=== PATIENT | male | born 1985 | race Caucasian/White ===

== ENCOUNTER 2024-06-06 15:37 | Observation (INO) | payer OTHER ==
[2024-06-06] MEDS: ZIPRASIDONE 20 MG VIAL IM STA (15:50)
--- NOTE | 2024-06-06 15:50 | ED ---
General Adult HPI - General Stated complaint: ETOH Time Seen by Provider: 06/06/24 15:42 Source: patient, RN notes reviewed, old records reviewed - History of Present Illness Initial comments: 38-year-old male who presents to the emergency department from [facility] facility. According to EMS at [facility] he want to be there for alcohol withdrawal and possible drug abuse. Patient did a breathalyzer test and he is alcohol was 477 according to EMS and so they felt uncomfortable keeping them in the syndrome to the emergency department. Patient refuses to answer any questions he is very belligerent when he gets here because he does not want to stay - Related Data Home Medications Medication Instructions Recorded Confirmed Buprenorphine HCl/Naloxone HCl 2 film SL DIRECTED 06/06/24 06/06/24 [Suboxone 8 mg-2 mg Sl Film] FLUoxetine HCL [PROzac] See Taper PO DIRECTED 06/06/24 06/06/24 QUEtiapine [SEROquel] 50 - 100 mg PO HS PRN 06/06/24 06/06/24 chlordiazePOXIDE HCl [Librium] 10 mg PO DIRECTED 06/06/24 06/06/24 chlordiazePOXIDE HCl [Librium] 25 mg PO DIRECTED PRN 06/06/24 06/06/24 Allergies Allergy/AdvReac Type Severity Reaction Status Date / Time No Known Allergies Allergy Verified 06/06/24 17:20 Review of Systems ROS Statement: Those systems with pertinent positive or pertinent negative responses have been documented in the HPI. ROS Other: All systems not noted in ROS Statement are negative. General Exam - General Exam Comments Initial Comments: GENERAL: Patient is well-developed and well-nourished. Patient is nontoxic and well- hydrated and is in no acute distress. Patient appears very intoxicated and is very belligerent ENT: Neck is soft and supple. No significant lymphadenopathy is noted. Oropharynx is clear. Moist mucous membranes. Neck has full range of motion without eliciting any pain. EYES: The sclera were anicteric and conjunctiva were pink and moist. Extraocular movements were intact and pupils were equal round and reactive to light. Eyelids were unremarkable. PULMONARY: Unlabored respirations. Good breath sounds bilaterally. No audible rales rhonchi or wheezing was noted. CARDIOVASCULAR: There is a regular rate and rhythm without any murmurs gallops or rubs. ABDOMEN: Soft and nontender with normal bowel sounds. SKIN: Skin is clear with no lesions or rashes and otherwise unremarkable. NEUROLOGIC: Patient is alert and oriented x3. Cranial nerves II through XII are grossly intact. Motor and sensory are also intact. Normal speech, volume and content. Symmetrical smile. MUSCULOSKELETAL: Normal extremities with adequate strength and full range of motion. LYMPHATICS: No significant lymphadenopathy is noted PSYCHIATRIC: Unable to assess can Harshad to him being belligerent Course Vital Signs 06/06/24 15:46 Temperature 98.0 F Pulse Rate 82 Respiratory 20 Rate Blood Pressure 133/101 O2 Sat by Pulse 95 Oximetry Medical Decision Making - Medical Decision Making Was pt. sent in by a medical professional or institution (, [facility], [facility]ATHER ETCHER, urgent care, hospital, or group home...) When possible be specific @ -No Did you speak to anyone other than the patient for history (EMS, parent, family, police, friend...)? What history was obtained from this source @ -No Did you review nursing and triage notes (agree or disagree)? Why? @ -I reviewed and agree with nursing and triage notes Were old charts reviewed (outside hosp., previous admission, EMS record, old EKG, old radiological studies, urgent care reports/EKG's, group home records)? Report findings @ -No old charts were reviewed Differential Diagnosis? @ -Alcohol intoxication, drug abuse, this is not an all-inclusive list EKG interpreted by me (3pts min.). @ -As above X-rays interpreted by me (1pt min.). @ -None done CT interpreted by me (1pt min.). @ -None done U/S interpreted by me (1pt. min.). @ -None done What testing was considered but not performed or refused? (CT, X-rays, U/S, labs)? Why? @ -None What meds were considered but not given or refused? Why? @ -None Did you discuss the management of the patient with other professionals (professionals i.e. LAURA Araiza, LEATHER ETCHER, lab, RT, psych nurse, social insurance administrator, glue drier operator, teacher, intelligence officer basic, watch caser)? Give summary @ -I spoke with Dr. Keating he agreed to admit the patient I admitted the patient wrote admitting orders Was smoking cessation discussed for >3mins.? @ -No Was critical care preformed (if so, how long)? @ -No Were there social determinants of health that impacted care today? How? (Homelessness, low income, unemployed, alcoholism, drug addiction, tra nsportation, low edu. Level, literacy, decrease access to med. care, nursing home, rehab)? @ -No Was there de-escalation of care discussed even if they declined (Discuss DNR or withdrawal of care, Hospice)? DNR status @ -No What co-morbidities impacted this encounter? (DM, HTN, Smoking, COPD, CAD, Cancer, CVA, ARF, Chemo, Hep., AIDS, mental health diagnosis, sleep apnea, morbid obesity)? @ -None Was patient admitted / discharged? Hospital course, mention meds given and route, prescriptions, significant lab abnormalities, going to OR and other pertinent info. @ -Patient was given IV fluids. Patient was belligerent so he was given 20 of Geodon IM and 2 of Ativan IV. Undiagnosed new problem with uncertain prognosis? @ -No Drug Therapy requiring intensive monitoring for toxicity (Heparin, Nitro, Insu tejas, Cardizem)? @ -No Were any procedures done? @ -No Diagnosis/symptom? @ -Alcohol intoxication Acute, or Chronic, or Acute on Chronic? @ -Acute Uncomplicated (without systemic symptoms) or Complicated (systemic symptoms)? @ -Complicated Side effects of treatment? @ -No Exacerbation, Progression, or Severe Exacerbation? @ -No Poses a threat to life or bodily function? How? (Chest pain, USA, GA, pneumonia, PE, COPD, DKA, ARF, appy, cholecystitis, CVA, Diverticulitis, Homicidal, Suicidal, threat to staff... and all critical care pts) @ -Yes this can lead to withdrawal and possible seizures and - Lab Data Result diagrams: 06/06/24 15:54 06/06/24 15:54 Lab Results 06/06/24 06/06/24 06/06/24 Range/Units 15:54 15:54 15:54 WBC 5.5 (3.8-10.6) k/uL RBC 4.96 (4.30-5.90) m/uL Hgb 14.9 (13.0-17.5) gm/dL Hct 45.7 (39.0-53.0) % MCV 92.2 (80.0-100.0) fL MCH 30.1 (25.0-35.0) pg MCHC 32.6 (31.0-37.0) g/dL RDW 13.3 (11.5-15.5) % Plt Count 157 (150-450) k/uL MPV 6.4 Neutrophils % 49 % Lymphocytes % 41 % Monocytes % 4 % Eosinophils % 2 % Basophils % 1 % Neutrophils # 2.7 (1.3-7.7) k/uL Lymphocytes # 2.3 (1.0-4.8) k/uL Monocytes # 0.2 (0-1.0) k/uL Eosinophils # 0.1 (0-0.7) k/uL Basophils # 0.0 (0-0.2) k/uL PT (10.0-12.5) sec INR (<1.2) APTT (22.0-30.0) sec Sodium 147 H (137-145) mmol/L Potassium 4.6 (3.5-5.1) mmol/L Chloride 109 H (98-107) mmol/L Carbon Dioxide 28 (22-30) mmol/L Anion Gap 10 mmol/L BUN 13 (9-20) mg/dL Creatinine 0.74 (0.66-1.25) mg/dL Est GFR (CKD-EPI)AfAm >90 (>60 ml/min/1.73 sqM) Est GFR (CKD-EPI)NonAf >90 (>60 ml/min/1.73 sqM) Glucose 110 H (74-99) mg/dL Plasma Lactic Acid Mack 3.8 H* (0.7-2.0) mmol/L Calcium 9.1 (8.4-10.2) mg/dL Magnesium 1.8 (1.6-2.3) mg/dL Total Bilirubin 0.8 (0.2-1.3) mg/dL AST 68 H (17-59) U/L ALT 22 (4-49) U/L Alkaline Phosphatase 72 (38-126) U/L Total Protein 8.4 H (6.3-8.2) g/dL Albumin 5.2 H (3.5-5.0) g/dL Lipase 144 (23-300) U/L Serum Alcohol 429 H* mg/dL 10/15/24 Range/Units 15:54 WBC (3.8-10.6) k/uL RBC (4.30-5.90) m/uL Hgb (13.0-17.5) gm/dL Hct (39.0-53.0) % MCV (80.0-100.0) fL MCH (25.0-35.0) pg MCHC (31.0-37.0) g/dL RDW (11.5-15.5) % Plt Count (150-450) k/uL MPV Neutrophils % % Lymphocytes % % Monocytes % % Eosinophils % % Basophils % % Neutrophils # (1.3-7.7) k/uL Lymphocytes # (1.0-4.8) k/uL Monocytes # (0-1.0) k/uL Eosinophils # (0-0.7) k/uL Basophils # (0-0.2) k/uL PT 11.5 (10.0-12.5) sec INR 1.1 (<1.2) APTT 23.4 (22.0-30.0) sec Sodium (137-145) mmol/L Potassium (3.5-5.1) mmol/L Chloride (98-107) mmol/L Carbon Dioxide (22-30) mmol/L Anion Gap mmol/L BUN (9-20) mg/dL Creatinine (0.66-1.25) mg/dL Est GFR (CKD-EPI)AfAm (>60 ml/min/1.73 sqM) Est GFR (CKD-EPI)NonAf (>60 ml/min/1.73 sqM) Glucose (74-99) mg/dL Plasma Lactic Acid Mack (0.7-2.0) mmol/L Calcium (8.4-10.2) mg/dL Magnesium (1.6-2.3) mg/dL Total Bilirubin (0.2-1.3) mg/dL AST (17-59) U/L ALT (4-49) U/L Alkaline Phosphatase (38-126) U/L Total Protein (6.3-8.2) g/dL Albumin (3.5-5.0) g/dL Lipase (23-300) U/L Serum Alcohol mg/dL Disposition Clinical Impression: Alcoholic intoxication Disposition: ADMITTED IP TO THIS HOSP Referrals: None,Stated [Primary Care Provider] - 1-2 days Time of Disposition: 17:55
[2024-06-06] MEDS: LORazepam 2 MG/ML INJ IV STA (15:52)
[2024-06-06 16:04] LABS: Basophils % (A) 1 %; Eosinophils # (A) 0.1 k/uL (0-0.7); Eosinophils % (A) 2 %; HCT 45.7 % (39.0-53.0); HGB 14.9 gm/dL (13.0-17.5); Lymphocytes # (A) 2.3 k/uL (1.0-4.8); Lymphocytes % (A) 41 %; MCH 30.1 pg (25.0-35.0); MCHC 32.6 g/dL (31.0-37.0); MCV 92.2 fL (80.0-100.0); Mean Platelet Volume 6.4; Monocytes # (A) 0.2 k/uL (0-1.0); Monocytes % (A) 4 %; Neutrophils # (A) 2.7 k/uL (1.3-7.7); Neutrophils % (A) 49 %; Platelet Count 157 k/uL (150-450); RBC 4.96 m/uL (4.30-5.90); RDW 13.3 % (11.5-15.5); WBC 5.5 k/uL (3.8-10.6)
[2024-06-06 16:14] LABS: ALT 22 U/L (4-49); AST 68 U/L (17-59); African American GFR (CKD) >90 (>60 ml/min/1.73 sqM); Albumin 5.2 g/dL (3.5-5.0); Alkaline Phosphatase 72 U/L (38-126); Anion Gap 10 mmol/L; Blood Urea Nitrogen 13 mg/dL (9-20); Calcium 9.1 mg/dL (8.4-10.2); Carbon Dioxide 28 mmol/L (22-30); Chloride 109 mmol/L (98-107); Glucose 110 mg/dL (74-99); Lipase 144 U/L (23-300); Magnesium 1.8 mg/dL (1.6-2.3); Non-African American GFR(CKD) >90 (>60 ml/min/1.73 sqM); Potassium 4.6 mmol/L (3.5-5.1); Sodium 147 mmol/L (137-145); Total Bilirubin 0.8 mg/dL (0.2-1.3); Total Protein 8.4 g/dL (6.3-8.2)
[2024-06-06] MEDS: SODIUM CHLORIDE 0.9% 1,000 ML IV ONE ×2 (16:30→19:06)
[2024-06-06 16:33] LABS: Alcohol 429 mg/dL
[2024-06-06 16:37] LABS: INR 1.1 (<1.2); Partial Thromboplastin Time 23.4 sec (22.0-30.0); Prothrombin Time 11.5 sec (10.0-12.5)
[2024-06-06 20:26] LABS: Amphetamine Screen,Urine Not Detected (NotDetected); Barbiturate Screen,Urine Not Detected (NotDetected); Benzodiazepines Screen,Urine Detected (NotDetected); Cocaine Screen,Urine Not Detected (NotDetected); Methadone Screen, Urine Not Detected (NotDetected); Opiate Screen,Urine Not Detected (NotDetected); Oxycodone Screen, Urine Not Detected (NotDetected); Phencyclidine Screen,Urine Not Detected (NotDetected); Tricyclic Antidepressant,Urine Not Detected (NotDetected); Urn Cannabinoid Scrn Detected (NotDetected)
[2024-06-06] MEDS: LORazepam 2 MG/ML INJ IV PRN (21:14)
[2024-06-06] MEDS: LORazepam 1 MG TAB PO PRN (23:50)
[2024-06-07] MEDS: ONDANSETRON 4 MG/2 ML VIAL IVP PRN (01:15)
[2024-06-07] MEDS: LORazepam 2 MG/ML INJ IV PRN ×2 (01:16→13:20)
[2024-06-07] MEDS: LORazepam 1 MG TAB PO PRN (08:11)
[2024-06-07] MEDS: SODIUM CHLORIDE 0.9% 1,000 ML IV ONE (09:53)
[2024-06-07 12:32] LABS: Basophils % (A) 0 %; Eosinophils % (A) 0 %; HCT 39.8 % (39.0-53.0); HGB 13.2 gm/dL (13.0-17.5); Lymphocytes # (A) 0.6 k/uL (1.0-4.8); Lymphocytes % (A) 12 %; MCH 30.4 pg (25.0-35.0); Mean Platelet Volume 6.8; Monocytes # (A) 0.2 k/uL (0-1.0); Monocytes % (A) 5 %; Neutrophils # (A) 3.7 k/uL (1.3-7.7); Neutrophils % (A) 81 %; Platelet Count 108 k/uL (150-450); RBC 4.33 m/uL (4.30-5.90); RDW 13.1 % (11.5-15.5); WBC 4.5 k/uL (3.8-10.6)
[2024-06-07 12:49] LABS: ALT 25 U/L (4-49); AST 68 U/L (17-59); African American GFR (CKD) >90 (>60 ml/min/1.73 sqM); Albumin 4.6 g/dL (3.5-5.0); Albumin/Globulin Ratio 1.8; Alkaline Phosphatase 66 U/L (38-126); Anion Gap 7 mmol/L; Blood Urea Nitrogen 16 mg/dL (9-20); Calcium 8.6 mg/dL (8.4-10.2); Carbon Dioxide 31 mmol/L (22-30); Chloride 100 mmol/L (98-107); Globulin 2.6 g/dL; Glucose 102 mg/dL (74-99); Magnesium 1.4 mg/dL (1.6-2.3); Non-African American GFR(CKD) >90 (>60 ml/min/1.73 sqM); Potassium 3.8 mmol/L (3.5-5.1); Sodium 138 mmol/L (137-145); Total Bilirubin 1.4 mg/dL (0.2-1.3); Total Protein 7.2 g/dL (6.3-8.2)
--- NOTE | 2024-06-07 13:01 | HP ---
HISTORY AND PHYSICAL A 38-year-old white male, came to the hospital with alcohol intoxication, came from [place] with alcohol withdrawal, drug abuse. Breathalyzer was 477, came to the ER, he was sleeping when I found him. MEDICATIONS: He takes, 1. Suboxone at home. 2. Prozac 20 mg daily. 3. Seroquel 50 at night. 4. . ALLERGIES: Negative. REVIEW OF SYSTEMS: A 14-point review of systems negative as he is somnolent. PHYSICAL EXAMINATION: GENERAL: He is overweight white male, well hydrated, appears to be sleeping normally without distress. HEENT: Normocephalic. Pupils equal, round. LUNGS: Fairly good air flow. GI: Distended, obesity. HEMATOLOGY: Negative Homans. SKIN: Unremarkable. NEUROLOGIC: Cranial nerves intact. VITAL SIGNS: Temp 98.0, pulse 82, respiratory rate is 18 to 20, blood pressure 130/101 to 95. ASSESSMENT: Alcohol intoxication, hyponatremia, lactic acidosis. We gave him fluids, CIWA protocol. Monitor his electrolytes. Possibly get a psych consult . MMODL / IJN: [id number] /
[2024-06-07] MEDS: SODIUM CHLORIDE 0.9% 1,000 ML IV SCH (13:13)
[2024-06-07] MEDS: NON FORMULARY DRUG (Buprenorphine Hcl/Naloxone Hcl [Suboxone 8 Mg-2 Mg Sl Film] 1 EACH Fil SUBLINGUAL SCH (18:07)
[2024-06-07] MEDS ORDERED: Magnesium Replacement Protocol 1 EACH MISC MISCELLANE PRN (18:41)
[2024-06-07] MEDS: MAGNESIUM SULFATE-D5W PMX 1 GM in DEXTROSE/WATER 1 100ML.BAG IVPB SCH (20:12)
[2024-06-08 08:44] LABS: Magnesium 1.9 mg/dL (1.5-2.4)
[2024-06-08 08:53] LABS: BUN/Creat Ratio 18.62 Ratio (12.00-20.00); Blood Urea Nitrogen 14.9 mg/dL (9.0-27.0); Chloride 97 mmol/L (96-109); Glucose 119 mg/dL (70-110); Potassium 3.5 mmol/L (3.5-5.5); Sodium 138 mmol/L (135-145)
[2024-06-08 08:54] LABS: ALT 22 U/L (10-49); AST 52 U/L (14-35); Albumin 4.4 g/dL (3.8-4.9); Albumin/Globulin Ratio 1.91 Ratio (1.60-3.17); Alkaline Phosphatase 65 U/L (41-126); Calcium 8.5 mg/dL (8.7-10.3); Carbon Dioxide 28.8 mmol/L (21.6-31.8); Globulin 2.3 g/dL (1.6-3.3); Total Bilirubin 1.1 mg/dL (0.3-1.2); Total Protein 6.7 g/dL (6.2-8.2)
[2024-06-08 09:11] LABS: Basophils # (A) 0.01 X 10*3/uL (0.00-0.10); Basophils % (A) 0.1 %; Eosinophils # (A) 0.01 X 10*3/uL (0.04-0.35); Eosinophils % (A) 0.1 %; HGB 12.6 g/dL (13.0-17.0); Immature Platelet Fraction 2.4 % (1.1-6.1); Lymphocytes # (A) 0.25 X 10*3/uL (0.90-5.00); Lymphocytes % (A) 2.9 %; MCH 29.9 pg (27.0-32.0); MCHC 34.1 g/dL (32.0-37.0); MCV 87.9 FL (80.0-97.0); Mean Platelet Volume 9.2 FL (9.5-12.2); Monocytes # (A) 0.25 X 10*3/uL (0.20-1.00); Monocytes % (A) 2.9 %; NRBC Per 100 WBC 0 X 10*3/uL (0.00-0.01); Neutrophils # (A) 8.09 X 10*3/uL (1.80-7.70); Neutrophils % (A) 93.7 %; Platelet Count 87 X 10*3/uL (140-440); RBC 4.21 X 10*6/uL (4.40-5.60); RDW 13.2 % (11.5-14.5); WBC 8.64 X 10*3/uL (4.50-10.00)
[2024-06-08] MEDS: FLUoxetine HCL 20 MG CAP PO SCH (10:34)
[2024-06-08] MEDS: LORazepam 0.5 MG TAB PO PRN (12:54)
[2024-06-08] MEDS: chlordiazePOXIDE 25 MG CAP PO SCH (23:05)
[2024-06-09] MEDS: ACETAMINOPHEN TAB 500 MG TAB PO PRN (02:07)
--- NOTE | 2024-06-09 03:50 | PN ---
PROGRESS NOTE SUBJECTIVE: A 38-year-old white male with alcohol intoxication. He has been to see a psychiatrist per his mom. He appears to be stable at this time. He is up and walk around. OBJECTIVE: CARDIOVASCULAR: S1 and S2. LUNGS: Transmitted upper sounds. Mild tremor. ASSESSMENT: Alcohol intoxication, alcohol withdrawal, dependence of alcohol. Await for psych consult. Possible [facility] placement. Prognosis guarded. MMODL / IJN: [id number] /
--- NOTE | 2024-06-09 14:18 | P.CN ---
Psychiatric Consult - . Consult date: 06/09/24 Consult:: 06/09/24 13:14 IDENTIFYING DATA: This patient is a 38-year-old male, he currently is he has no kids he lives with his mother in a loft. He and that he works at [employer]. REASON FOR REFERRAL: Psychiatry was consulted for potation and alcohol abuse HISTORY OF PRESENT ILLNESS: The patient presented to the hospital initially on 06/06 was brought in from [place] for alcohol use/intoxication. Patient's blood alcohol was measured at 429. EMS brought him into the hospital. He apparently was belligerent and agitated, significant withdrawals and has a history of alcohol withdrawal. He was agreeable to speak to administrative underwriter at the bedside today. He states that he is feeling lethargic" out of it" before coming into the hospital. States that he drank too much and was not excepted at [facility]. He appeared to have poor impulse control, poor reality testing was irritable with administrative underwriter, focused on discharge, minimizing his drinking and need for mental health treatment. He claims that he was sent to the hospital [facility] to detox. He claims that he does have a history of withdrawal seizures from alcohol. States that he was also hallucinating seeing ghosts and other strange things in the room however is not any longer. Claims that he was drinking about 1-2 fifths of vodka daily for about 15 years now. Denies any current depression or anxiety. Denies any paranoia at this time. Claims that his sleep is poor appetite is poor.. At this time patient denies any current suicidal or homical ideations, intent or plan. Patient denies any auditory, visual hallucinations and denies any paranoia or delusions. Patients admits to using alcohol as noted above, claims that he smokes cigarettes, claims that he also smokes marijuana. Patient was agreeable to administrative underwriter to allow him to speak with his mother for further information. Patient's mother petitioned him initially mainly speaking about his impulsivity, inability to take care of himself and also his drug use. Mother claims that she is more concerned further about other things concerning his wellbeing. She claims that he has been texting about hallucinating and also about wanting to end his life and "not being here any longer". She claims that she is very worried about his mental health at this time and was able today to fill out a new petition stating her further concerns about his deteriorating mental health condition and insight and self-harm. PAST PSYCHIATRIC HISTORY: Patient has a a history of bipolar disorder?, Alcohol use and cannabis use. He claims that he is currently on Prozac and Suboxone patient denies any previous psychiatric hospitalizations. Patient denies any psychiatric outpatient follow-up. Patient denies any history of suicide attempts in the past. PAST MEDICAL HISTORY: As per medical H&P ALLERGIES: as per EMR. CHEMICAL DEPENDENCY HISTORY: as per HPI. FAMILY PSYCHIATRIC/SUBSTANCE USE HISTORY: Claims that his biological mother had bipolar and schizophrenia, does not know anything about his biological father. SOCIAL HISTORY: Patient was born and raised in [place] and also in [place]. Claims that he was adopted at a young age, is living with his adoptive mother and aloft. He is working at [employer]. He has no kids he is . He apparently completed high school and did some college. States that he went to [facility] in the past for domestic violence charges. MENTAL STATUS EXAM: General Appearance: Patient appears to be overweight, bald, has a gomez, stated age is alert, irritable at times, vague. Patient appears to have fair hygiene and grooming wearing hospital gown with poor eye contact. Behavior: Notable, vague, evasive Speech: Patient's speech is fluent and nonpressured. Brady Mood/Affect: Patient reports their mood is "depressed", affect is congruent and constricted Suicidality/Homicidality: Patient denies having any suicidal or homicidal ideation intent or plan. Perceptions: Patient denies any visual hallucinations and denies any auditory hallucinations Though content/process: Brady, evasive vague. Minimizing his need for treatment. Focused on discharge. Illogical at times. Memory and concentration: AOX3, grossly intact for the purposes of this session. Can spell "WORLD" backwards Judgment and insight: Poor/impulsive IMPRESSIONS: Mood disorder unspecified Alcohol use disorder, severe dependence, currently in withdrawal Cannabis use disorder Nicotine dependence PLAN: -At this time patient DOES meet criteria for inpatient psychiatric admission. patients mother will complete a new petition today stating her concerns of patients safety, ideas of self harm and hallucinations. -Would recommend the following medication changes/additions: Can continue with current psychiatric medications as prescribed until patient is safely transferred to the mental health unit after being medically cleared. -CIWA protocol with PRN Ativan for alcohol withdrawal. Continue to monitor vital signs. Is also on scheduled Librium for alcohol withdrawal. -Continue 1:1 sitter for safety until patient is safely transferred to the mental health unit -Cannot leave AMA at this time. Patient will need a petition and certification if attempting to leave AMA. -Medical Transcription Radiology spoke with patient about substance abuse and the harmful effects on medical and mental health, patient verbally understood and agreed. -When medically stable, patient is eligible for transfer to a psych bed when available. -Communicated plan to patient's nurse -Psychiatry will sign off at this time -Please contact with any questions. 06/09/24 14:10
--- NOTE | 2024-06-09 14:45 | P.DS ---
Providers Date of admission: 06/06/24 17:57 Attending physician: Colt Keating Consults: 06/08/24 09:43 Consult Physician Routine Consulting Provider: Kimberly Duffy Consult Reason/Comments: ETOH / Petition Do you want consulting provider notified?: Yes 06/08/24 22:31 Consult Physician Routine Consulting Provider: Michael Irving Consult Reason/Comments: hallucinations Do you want consulting provider notified?: Yes, Notify in am Primary care physician: Stated None Hospital Course: Final Diagnosis Alcohol use disorder and acute alcohol intoxication and withdrawal Substance use with marijuana also on suboxone Nicotine dependence Lactic acidosis resolved Elevated AST from chronic alcoholism Hyperbilirubinemia from alcholism normalized hx of DVT not currently on anticoagulation. hx of depression GI prophylaxis Discharge Disposition Stable medically for transfer to psychiatric unit. Hospital Course 38-year-old male who comes to the [facility] secondary to acute alcohol intoxication. He was brought to the hospital for alcohol withdrawal and detox. His blood alcohol level was 429. Patient has a medical history of chronic alcohol use, GERD, depression and is a current smoker as well as marijuana use. Patient was having significant withdrawal symptoms requiring IV ativan and librium. was having auditory hallucinations. He has improved and is up ambulating. He had made comments today regarding suicidal ideations and was texting his mother he had a plan while in the hospital room. For this reason suicide sitter was placed at the bedside and psychiatry evaluated the patient. He had an intake [facility] today, however is now recommending for inpatient psychiatric evaluation. Patients adoptive mother has petitioned the patient and has provided a new petition today regarding this statements about his mental health and family has significant concerns regarding patients ability to care for himself. He cannot leave AMA at this time. Patient found to have elevated lactic acid 0.3 on admission which has since normalized. His CBC and electrolytes are essentially unremarkable. He had a mildly elevated bilirubin of 1.4 on admission and an AST of 68 which have both improved. He is not reporting any chest pain shortness of breath nausea vomiting or diarrhea. He is not having any headache dizziness or lightheaded. He has been cooperative today. When a bed is available medically he has been cleared for transfer to psychiatric unit. Please see medication reconciliation for a list of current medications. Thank you for allowing us to participate in the care of this patient. The impression and plan of care has been dictated by Amie Cruz, Nurse Practitioner as directed. Dr. Armond MD I have performed a history and physical examination and medical decision making of this patient, discussed the same with the dictator, and agree with the dictators assessment and plan as written, documented as a scribe. Based on total visit time, I have performed more than 50% of this visit. Patient Condition at Discharge: Fair Plan - Discharge Summary Discharge Rx Participant: Yes New Discharge Prescriptions: New Nicotine 21Mg/24Hr Patch [Habitrol] 1 each TRANSDERM DAILY #7 patch FLUoxetine HCL [PROzac] 20 mg PO DAILY cap chlordiazePOXIDE HCl [Librium] 25 mg PO TID cap Famotidine [Pepcid] 20 mg PO DAILY #30 tablet Acetaminophen Tab [Tylenol] 500 mg PO Q6HR PRN tab PRN Reason: Fever And/ Or Pain Continue Buprenorphine HCl/Naloxone HCl [Suboxone 8 mg-2 mg Sl Film] 2 film SL DIRECTED Discontinued FLUoxetine HCL [PROzac] See Taper PO DIRECTED No Action chlordiazePOXIDE HCl [Librium] 25 mg PO DIRECTED PRN PRN Reason: Anxiety chlordiazePOXIDE HCl [Librium] 10 mg PO DIRECTED QUEtiapine [SEROquel] 50 - 100 mg PO HS PRN PRN Reason: Insomnia Discharge Medication List Buprenorphine HCl/Naloxone HCl [Suboxone 8 mg-2 mg Sl Film] 2 film SL DIRECTED 06/06/24 [History] QUEtiapine [SEROquel] 50 - 100 mg PO HS PRN 06/06/24 [History] chlordiazePOXIDE HCl [Librium] 10 mg PO DIRECTED 06/06/24 [History] chlordiazePOXIDE HCl [Librium] 25 mg PO DIRECTED PRN 06/06/24 [History] Acetaminophen Tab [Tylenol] 500 mg PO Q6HR PRN tab 06/09/24 [Rx] FLUoxetine HCL [PROzac] 20 mg PO DAILY cap 06/09/24 [Rx] Famotidine [Pepcid] 20 mg PO DAILY #30 tablet 06/09/24 [Rx] Nicotine 21Mg/24Hr Patch [Habitrol] 1 each TRANSDERM DAILY #7 patch 06/09/24 [Rx] chlordiazePOXIDE HCl [Librium] 25 mg PO TID cap 06/09/24 [Rx] Follow up Appointment(s)/Referral(s): None,Stated [Primary Care Provider] - 1-2 days Activity/Diet/Wound Care/Special Instructions: Cleared for transfer to psychiatric unit. Discharge/Stand Alone Forms: AA [facility], Community Resources, Outpatient Counseling, In Substance Abuse Facilities Discharge Disposition: TRANSFER TO PSYCH HOSP/UNIT
[2024-06-09] MEDS: NICOTINE 21MG/24HR PATCH TRANSDERM SCH (15:46)
[2024-06-09 16:06] VITALS: TEMP 98.2
[2024-06-09] MEDS: NON FORMULARY DRUG (Buprenorphine Hcl/Naloxone Hcl [Suboxone 8 Mg-2 Mg Sl Film] 1 EACH Fil SUBLINGUAL SCH (17:09)
[2024-06-09 19:40] VITALS: BP 190/94; PULSE 97; RESP 18
--- NOTE | 2024-06-11 16:36 | P.CNNES ---
History of Present Illness Consult date: 06/09/24 Requesting physician: Colt Keating Reason for Consult: Hallucinations History of Present Illness: Patient is a 38-year-old male with history of alcoholism, was brought to the hospital from [facility] by ambulance on 06/06/2024 for alcohol detox. As per EMS flowsheet when they arrived at the [facility], patient was sitting outside the rehab center with staff and family. Per staff patient's blood alco hol level was 0.477 and he needs to go to the hospital for detox. Patient was resistant to going to the hospital but finally agreed. Patient was placed on the stretcher, when he tried to pull off the seatbelts and refused to go to the hospital. Patient states that he just wants to go have a drink. Patient was agitated, trying to climb out of the stretcher and route to the hospital. Patient remained labile, angry and tearful. Patient's blood pressure at the scene was 133/84, pulse rate 70, respiration 18 saturation 99%. Blood test shows blood alcohol level 429, urine drug screen positive for marijuana and benzodiazepine. CBC PT PTT normal. Sodium 147 potassium 4.6, renal functions are normal. Lactate 3.8. AST 68, ALT 22. Lipase normal. Patient was noted to have visual hallucinations, which prompted this neurology consultation. A sitter was also present by the bedside. He states that patient is occasionally seem to pickling grader something from the floor like a piece of something. He is not sure if there is something that he is trying to pick, or having hallucinations. Otherwise he has been doing well. No major hallucinations at this time. He admits to having hallucination couple days ago but not anymore. Patient admits to having history of a seizure once about 10 years ago, when he was in detox, in [place]. Patient admits to drinking a pint or fifth of vodka daily for last 10 years. He lives by himself. He does smoke marijuana. Patient states that he also takes Prozac, Seroquel and Suboxone. Patient denies any headache, dizziness or any other focal symptoms. Review of Systems All pertinent positive and negative review of systems mentioned in the HPI otherwise unremarkable. Past Medical History Past Medical History: Deep Vein Thrombosis (DVT) Additional Past Medical History / Comment(s): ETOH History of Any Multi-Drug Resistant Organisms: None Reported Past Surgical History: No Surgical Hx Reported Past Psychological History: Depression Smoking Status: Vaper Past Alcohol Use History: Abuse, Daily Past Drug Use History: None Reported Medications and Allergies Home Medications Medication Instructions Recorded Confirmed Type Buprenorphine HCl/Naloxone HCl 2 film SL DIRECTED 06/06/24 06/10/24 History [Suboxone 8 mg-2 mg Sl Film] FLUoxetine HCL [PROzac] 20 mg PO DAILY cap 06/09/24 06/10/24 Rx Famotidine [Pepcid] 20 mg PO DAILY #30 tablet 06/09/24 06/10/24 Rx Nicotine 21Mg/24Hr Patch [Habitrol] 1 each TRANSDERM DAILY #7 patch 06/09/24 06/10/24 Rx Albuterol Inhaler [Ventolin Hfa 1 puff INHALATION RT-QID PRN each 06/10/24 06/10/24 Rx Inhaler] QUEtiapine [SEROquel] 100 mg PO HS tab 06/10/24 06/10/24 Rx chlordiazePOXIDE HCl [Librium] 25 mg PO TID cap 06/10/24 06/10/24 Rx cloNIDine HCL [Catapres] 0.1 mg PO BID tab 06/10/24 06/10/24 Rx Allergies Allergy/AdvReac Type Severity Reaction Status Date / Time No Known Allergies Allergy Verified 06/06/24 17:20 Physical Examination - Vital Signs Vital Signs: Vital Signs Temp Pulse Resp BP Pulse Ox 06/09/24 01:16 98.3 F 84 17 168/94 95 06/08/24 19:15 97.5 F L 70 17 145/90 96 Intake and Output 06/08/24 06/09/24 06/09/24 22:59 06:59 14:59 Intake Total 492 10 Balance 492 10 Intake: IV 20 10 Invasive Line 1 10 10 Invasive Line 2 10 Oral 472 Other: Voiding Method Toilet Toilet # Voids 2 Patient is a young male, in no acute distress. Patient is alert awake oriented to time place and person. Patient knows it is May 2024 and that he is in [facility] in [place]. He knows his date of . Speech and language functions are normal. Patient can name and repeat very well. No aphasia or dysarthria. Attention, concentration and fund of knowledge is adequate. No obvious hallucinations. On cranial nerve examination, pupils are equal, round and reacting to light, visual daly are full on confrontation, with no neglect on double simultaneous stimulation. Extraocular muscles are intact with no nystagmus. Face is symmetric, tongue protrudes to the midline. Palatal elevation and sensation normal, hearing and shoulder shrug normal, facial sensation normal. On muscle strength testing, there is no pronator drift and the strength is normal in arms and legs distally and proximally. Patient has very minimal tremors of outstretched hands. Deep tendon reflexes are symmetric 1+ and plantars downgoing. Sensory to touch is equal with no neglect on double simultaneous stimulation. Cerebellar function showed no ataxia for [id number] testing. No dysdiadochokinesia. No ataxia for [id number] testing on either side. Tone and bulk of muscles normal. Gait deferred.. On general examination, there is no carotid bruit or murmur, S1-S2 audible. Chest is clear on consultation. Abdomen is soft nontender. No organomegaly, bowel sounds present. Peripheral pulses are present. No peripheral edema. Results - Laboratory Findings CBC and BMP: 06/08/24 06:07 06/08/24 06:07 Abnormal Lab Findings: Abnormal Labs 06/06/24 06/06/24 06/06/24 15:54 15:54 18:28 RBC Hgb Hct Plt Count MPV Neutrophils # Lymphocytes # Eosinophils # Sodium 147 H Chloride 109 H Carbon Dioxide Anion Gap Glucose 110 H Plasma Lactic Acid Mack 3.8 H* 2.8 H* Calcium Magnesium Total Bilirubin AST 68 H Total Protein 8.4 H Albumin 5.2 H U Benzodiazepines Scrn U Marijuana (THC) Screen Serum Alcohol 429 H* 06/06/24 06/06/24 06/07/24 20:00 21:18 05:16 RBC Hgb Hct Plt Count MPV Neutrophils # Lymphocytes # Eosinophils # Sodium Chloride Carbon Dioxide Anion Gap Glucose Plasma Lactic Acid Mack 5.1 H* 2.3 H* Calcium Magnesium Total Bilirubin AST Total Protein Albumin U Benzodiazepines Scrn Detected H U Marijuana (THC) Screen Detected H Serum Alcohol 06/07/24 06/07/24 06/08/24 12:15 12:15 06:07 RBC 4.21 L Hgb 12.6 L Hct 37.0 L Plt Count 108 L 87 L MPV 9.2 L Neutrophils # 8.09 H Lymphocytes # 0.6 L 0.25 L Eosinophils # 0.01 L Sodium Chloride Carbon Dioxide 31 H Anion Gap Glucose 102 H Plasma Lactic Acid Mack Calcium Magnesium 1.4 L Total Bilirubin 1.4 H AST 68 H Total Protein Albumin U Benzodiazepines Scrn U Marijuana (THC) Screen Serum Alcohol 06/08/24 06:07 RBC Hgb Hct Plt Count MPV Neutrophils # Lymphocytes # Eosinophils # Sodium Chloride Carbon Dioxide Anion Gap 12.20 H Glucose 119 H Plasma Lactic Acid Mack Calcium 8.5 L Magnesium Total Bilirubin AST 52 H Total Protein Albumin U Benzodiazepines Scrn U Marijuana (THC) Screen Serum Alcohol Assessment and Plan Assessment: * Hallucinations, likely related to alcohol withdrawal. * Acute alcohol intoxication, undergoing detox. * History of a solitary seizure 10 years ago during detox from alcohol. * Marijuana use * Depression Plan: * Patient is not having any more hallucinations. * He appears calm, and no significant signs of alcohol withdrawal at this time. * Neurologically clear for discharge. * Thank you for the consult.
== END 2024-06-10 00:48 ==
LOC: EC 15:37 → 6NMEDSUR 17:57 → 5NMEDONC 21:29
PROVIDERS: ADMIT Family Medicine; ATTEND Family Medicine
DX: F10.229 Alcohol dependence with intoxication, unspecified (principal); F17.200 Nicotine dependence, unspecified, uncomplicated; E87.20 Acidosis, unspecified; F31.9 Bipolar disorder, unspecified; Y90.8 Blood alcohol level of 240 mg/100 ml or more; K21.9 Gastro-esophageal reflux disease without esophagitis; R45.851 Suicidal ideations; F10.239 Alcohol dependence with withdrawal, unspecified; E87.1 Hypo-osmolality and hyponatremia; Z86.718 Personal history of other venous thrombosis and embolism; Z79.899 Other long term (current) drug therapy
CPT/HCPCS: 96376 ×4; 96361 ×4; 96365; 96366; 96375 ×2; 96372; 99285; 36415; 80053 ×3; 83605 ×2; 83690; 83735 ×3; 85025 ×3; 85610; 85730; 80306; 87635; G0378 ×6; G0480; S4990; J2060 ×4; J2405 ×2; J3486; J3475; 80320

== ENCOUNTER 2024-06-09 22:09 | Inpatient (IN) | payer MEDICAID ==
[2024-06-09] MEDS ORDERED: MAGNESIUM HYDROXIDE 2,400 MG/30 ML CUP PO PRN (22:48)
[2024-06-09] MEDS ORDERED: LORazepam 1 MG TAB PO PRN (22:48)
[2024-06-09] MEDS ORDERED: ACETAMINOPHEN TAB 325 MG TAB PO PRN (22:48)
[2024-06-09] MEDS ORDERED: LORazepam 2 MG/ML INJ IM PRN (22:48)
[2024-06-09] MEDS ORDERED: MAG HYDROX/AL HYDROX/SIMETH 355 ML BOTTLE PO PRN (22:48)
[2024-06-09] MEDS ORDERED: IBUPROFEN 600 MG TAB PO PRN (22:48)
[2024-06-10] MEDS: LORazepam 1 MG TAB PO PRN ×2 (00:52→03:31)
[2024-06-10] MEDS: NON FORMULARY DRUG (Buprenorphine Hcl/Naloxone Hcl [Suboxone 8 Mg-2 Mg Sl Film] 1 EACH Fil SUBLINGUAL SCH ×2 (00:54→06:00)
[2024-06-10] MEDS ORDERED: NICOTINE GUM (POLACRILEX) 2 MG GUM BUCCAL PRN (01:04)
[2024-06-10] MEDS ORDERED: OLANZapine 10 MG VIAL IM PRN (04:05)
[2024-06-10] MEDS: OLANZapine 5 MG TAB PO PRN (04:14)
[2024-06-10 04:33] VITALS: RESP 18
[2024-06-10 04:40] LABS: Appearance,Urine Clear (Clear); Bilirubin,Urine Negative (Negative); Blood,Urine Negative (Negative); Color,Urine Colorless; Glucose,Urine (UA) Negative (Negative); Ketones,Urine Negative (Negative); Leukocyte Esterase,Urine Negative (Negative); Nitrite,Urine Negative (Negative); Protein,Urine Negative (Negative); Specific Gravity,Urine 1.005 (1.001-1.035); Urobilinogen,Urine <2.0 mg/dL (<2.0)
[2024-06-10] MEDS: NICOTINE 14MG/24HR PATCH TRANSDERM SCH (07:42)
[2024-06-10] MEDS: FOLIC ACID 1 MG TAB PO SCH (07:43)
[2024-06-10] MEDS: FAMOTIDINE 20 MG TAB PO SCH (07:43)
[2024-06-10] MEDS: MULTIVITAMINS, THERA 1 EACH TAB PO SCH (07:43)
[2024-06-10] MEDS: chlordiazePOXIDE 25 MG CAP PO SCH (07:43)
[2024-06-10] MEDS: THIAMINE 100 MG TAB PO SCH (07:43)
[2024-06-10] MEDS: FLUoxetine HCL 20 MG CAP PO SCH (07:43)
[2024-06-10 07:46] VITALS: PULSE 111
[2024-06-10 08:10] LABS: ALT 31 U/L (4-49); AST 70 U/L (17-59); African American GFR (CKD) >90 (>60 ml/min/1.73 sqM); Albumin 4.6 g/dL (3.5-5.0); Alkaline Phosphatase 54 U/L (38-126); Anion Gap 6 mmol/L; Bilirubin, Delta 0.2 mg/dL (0.0-0.2); Bilirubin,Unconjugated 0.5 mg/dL (0.0-1.1); Blood Urea Nitrogen 14 mg/dL (9-20); Calcium 9.1 mg/dL (8.4-10.2); Carbon Dioxide 34 mmol/L (22-30); Chloride 95 mmol/L (98-107); Glucose 120 mg/dL (74-99); Non-African American GFR(CKD) >90 (>60 ml/min/1.73 sqM); Potassium 3.4 mmol/L (3.5-5.1); Sodium 135 mmol/L (137-145); Total Bilirubin 0.7 mg/dL (0.2-1.3); Total Protein 7.3 g/dL (6.3-8.2)
[2024-06-10 08:11] LABS: Basophils % (A) 0 %; Eosinophils # (A) 0.1 k/uL (0-0.7); Eosinophils % (A) 1 %; HCT 37.3 % (39.0-53.0); HGB 13.1 gm/dL (13.0-17.5); Lymphocytes # (A) 0.5 k/uL (1.0-4.8); Lymphocytes % (A) 9 %; MCH 30.9 pg (25.0-35.0); MCHC 35.1 g/dL (31.0-37.0); MCV 87.9 fL (80.0-100.0); Monocytes # (A) 0.3 k/uL (0-1.0); Monocytes % (A) 6 %; Neutrophils # (A) 4.3 k/uL (1.3-7.7); Neutrophils % (A) 83 %; RBC 4.24 m/uL (4.30-5.90); RDW 13.5 % (11.5-15.5); WBC 5.3 k/uL (3.8-10.6)
[2024-06-10 08:47] LABS: Platelet Count 70 k/uL (150-450)
[2024-06-10] MEDS: POTASSIUM CHLORIDE ER 20 MEQ TAB.ER PO STA (10:30)
--- NOTE | 2024-06-10 12:05 | P.HP ---
Psychiatric H&P - . H&P Date: 06/10/24 History & Physical: Allergies Allergy/AdvReac Type Severity Reaction Status Date / Time No Known Allergies Allergy Verified 06/06/24 17:20 Vital Signs Temp 97.1 F L 06/10/24 07:45 Pulse 111 H 06/10/24 07:45 Resp 18 06/10/24 04:20 BP 128/79 06/10/24 07:45 Pulse Ox 96 06/10/24 07:45 FiO2 Intake & Output 06/09/24 06/10/24 06/10/24 18:59 06:59 18:59 Weight 110.2 kg Laboratory Last Values WBC 5.3 k/uL (3.8-10.6) 06/10/24 07:35 RBC 4.24 m/uL (4.30-5.90) L 06/10/24 07:35 Hgb 13.1 gm/dL (13.0-17.5) 06/10/24 07:35 Hct 37.3 % (39.0-53.0) L 06/10/24 07:35 MCV 87.9 fL (80.0-100.0) 06/10/24 07:35 MCH 30.9 pg (25.0-35.0) 06/10/24 07:35 MCHC 35.1 g/dL (31.0-37.0) 06/10/24 07:35 RDW 13.5 % (11.5-15.5) 06/10/24 07:35 Plt Count 70 k/uL (150-450) L 06/10/24 07:35 MPV 8.0 06/10/24 07:35 Neutrophils % 83 % 06/10/24 07:35 Lymphocytes % 9 % 06/10/24 07:35 Monocytes % 6 % 06/10/24 07:35 Eosinophils % 1 % 06/10/24 07:35 Basophils % 0 % 06/10/24 07:35 Neutrophils # 4.3 k/uL (1.3-7.7) 06/10/24 07:35 Lymphocytes # 0.5 k/uL (1.0-4.8) L 06/10/24 07:35 Monocytes # 0.3 k/uL (0-1.0) 06/10/24 07:35 Eosinophils # 0.1 k/uL (0-0.7) 06/10/24 07:35 Basophils # 0.0 k/uL (0-0.2) 06/10/24 07:35 Manual Slide Review Performed 06/10/24 07:35 Sodium 135 mmol/L (137-145) L 06/10/24 07:35 Potassium 3.4 mmol/L (3.5-5.1) L 06/10/24 07:35 Chloride 95 mmol/L (98-107) L 06/10/24 07:35 Carbon Dioxide 34 mmol/L (22-30) H 06/10/24 07:35 Anion Gap 6 mmol/L 06/10/24 07:35 BUN 14 mg/dL (9-20) 06/10/24 07:35 Creatinine 0.78 mg/dL (0.66-1.25) 06/10/24 07:35 Est GFR (CKD-EPI)AfAm >90 (>60 ml/min/1.73 sqM) 06/10/24 07:35 Est GFR (CKD-EPI)NonAf >90 (>60 ml/min/1.73 sqM) 06/10/24 07:35 Glucose 120 mg/dL (74-99) H 06/10/24 07:35 Calcium 9.1 mg/dL (8.4-10.2) 06/10/24 07:35 Total Bilirubin 0.7 mg/dL (0.2-1.3) 06/10/24 07:35 Conjugated Bilirubin 0.0 mg/dL (0.0-0.3) 06/10/24 07:35 Unconjugated Bilirubin 0.5 mg/dL (0.0-1.1) 06/10/24 07:35 Delta Bilirubin 0.2 mg/dL (0.0-0.2) 06/10/24 07:35 AST 70 U/L (17-59) H 06/10/24 07:35 ALT 31 U/L (4-49) 06/10/24 07:35 Alkaline Phosphatase 54 U/L (38-126) 06/10/24 07:35 Total Protein 7.3 g/dL (6.3-8.2) 06/10/24 07:35 Albumin 4.6 g/dL (3.5-5.0) 06/10/24 07:35 TSH 2.430 mIU/L (0.465-4.680) 06/10/24 07:35 Urine Color Colorless 06/10/24 04:20 Urine Appearance Clear (Clear) 06/10/24 04:20 Urine pH 6.0 (5.0-8.0) 06/10/24 04:20 Ur Specific [place] 1.005 (1.001-1.035) 06/10/24 04:20 Urine Protein Negative (Negative) 06/10/24 04:20 Urine Glucose (UA) Negative (Negative) 06/10/24 04:20 Urine Ketones Negative (Negative) 06/10/24 04:20 Urine Blood Negative (Negative) 06/10/24 04:20 Urine Nitrite Negative (Negative) 06/10/24 04:20 Urine Bilirubin Negative (Negative) 06/10/24 04:20 Urine Urobilinogen <2.0 mg/dL (<2.0) 06/10/24 04:20 Ur Leukocyte Esterase Negative (Negative) 06/10/24 04:20 06/10/24 09:16 IDENTIFYING DATA: Patient is a employed 38-year-old male who is presenting with alcohol withdrawal and depression HPI: Patient was initially admitted to the medical floor due to alcohol withdrawal. He presented from [facility] due to alcohol withdrawal and agitation and was medically cleared prior to transfer to this floor. He was seen by psychiatry while hospitalized on the medical unit and was deemed needing psychiatric hospitalization due to suicidal ideation and hallucinations. His mother expressed concerns because of his heavy alcohol use and also concerns about him expressing AVH, with hearing voices that "are saying they are going to kill him " and visualizing a "little green akiko" which has been prompting him to state "he is going to kill himself before the green akiko does ". Patient is A&Ox2 to self, location, month, and year. He was cooperative done assessment this morning. He was making bizarre motions to grab at "a feather" that was not visible to this provider. He endorses having been feeling depressed and that he has been drinking heavily for a long time with the most recent drink being prior to admission (last drink before or on 06/06). He also reports having used ketamine and LSD prior to admission. Claims that he was drinking about 1-2 fifths of vodka daily for about 15 years now. Maximino reports feeling depressed, having poor appetite, having trouble sleeping, having little energy, and endorses suicidal ideation. However, he does not expand on this further. He denies homicidal ideation and denies access to firearms. He denies symptoms consistent with jan while sober of all substances. He denies current auditory hallucinations. He occasionally makes nonsensical statements about concerns that his family burned in a fire and then says that he will not elaborate on this further. Patient appears to be somewhat paranoid. Patient is also noted to have no physical symptoms of alcohol withdrawal although he reports visual hallucinations occasionally and is noted to be responding to them. He has been on Librium and Ativan PRN and tolerating these well. He denies a history of alcohol withdrawal seizures or a prior hx of Auditory and visual hallucinations. He reports compliance with outpatient psychotropic medications including Prozac and Suboxone. PSYCH HX: He claims that he is currently on Prozac and Suboxone patient denies any previous psychiatric hospitalizations. He states Prozac has been helpful and would like to be continued on this. Patient denies any psychiatric outpatient follow-up. Patient denies any history of suicide attempts in the past. Reports having tried Seroquel in the past and states it was helpful for sleep. PMH: As per medical H&P ALLERGIES: NKDA SUBSTANCE HX: LSD & ketamine: Used it prior to admission. Alcohol: As per HPI Cocaine: Denies Tobacco: Vape Cannabis: Frequent use Denies using other substances SOCIAL/LEGAL HX: Patient was born and raised in [place] and also in [place]. Claims that he was adopted at a young age, is living with his adoptive mother. He is working at [employer]. He has no kids he is . He apparently completed high school and did some college. States that he went to assisted in the past for domestic violence charges. FAM PSYCH HX: Claims that his biological mother had bipolar and schizophrenia, does not know anything about his biological father. MENTAL STATUS EXAM: General Appearance: Patient appears to be overweight, bald, has a gomez, stated age is alert, vague. Patient appears to have poor hygiene and grooming wearing hospital gown with fair eye contact. Behavior: Notable, vague, evasive Speech: Patient's speech is fluent and nonpressured. [place] Mood/Affect: Patient reports their mood is "depressed", affect is congruent and constricted Suicidality/Homicidality: Endorses suicidal ideation and denies homicidal ideation Perceptions: Patient denies any auditory hallucinations. Endorses visual hallucinations Though content/process: [place], evasive vague. Illogical at times. Memory and concentration: AOX2, fair concentration Judgment and insight: Poor/impulsive STRENGTHS/WEAKNESSES: Strength is resilience. Weakness is substance use INTELLECT: average IMPRESSIONS: Depressive disorder, unspecified Psychotic disorder, unspecified R/o alcohol induced mood disorder Alcohol use disorder, severe dependence, currently in withdrawal Cannabis use disorder Nicotine dependence Hx hallucinogen abuse PLAN: -Patient is admitted under voluntary status to MHU for stabilization of psychiatric symptoms and safety. Patient signed adult voluntary form and m edication consent and is placed in patient's chart. -Medications : Prozac 20 mg daily, Suboxone per outpatient tx (MAPS reviewed and no concern for diversion) Librium 25 mg TID for alcohol withdrawal Start Seroquel 100 mg qHS for psychosis and sleep Clonidine 0.1 mg qHS for alcohol withdrawal - CIWA protocol with Ativan PRN. Monitor vital signs. - Zyprexa & Ativan PRN for agitation/anxiety - NRT-Nicotine patch & gum PRN -Patient was counselled on substance abuse and desired to cut back on use. Motivational interviewing. Would benefit from returning back to rehab following psychiatric stabilization -Patient was informed of the risks, benefits and side effects of the medication and patient verbally consented to taking the medications. Patient signed med consent form and was placed in chart. -Internal Medicine consult to perform medical evaluation and physical. -SW on board for discharge planning. Encourage patient to participate in groups to work on coping skills. 06/10/24 11:37
[2024-06-10] MEDS ORDERED: ALBUTEROL INHALER 60 PUFF/8 GM INHALER (MHU) INHALATION PRN (13:19)
--- NOTE | 2024-06-10 13:20 | P.CONS ---
History of Present Illness - Reason for Consult Consult date: 06/10/24 Medical Management Requesting physician: Oswald Melgar - History of Present Illness 38-year-old male who comes to the [facility] secondary to acute alcohol intoxication. He was brought to the hospital for alcohol withdrawal and detox. His blood alcohol level was 429. Patient has a medical history of chronic alcohol use, GERD, depression and is a current smoker as well as marijuana use. Patient was having significant withdrawal symptoms requiring IV ativan and librium. was having auditory hallucinations. He has improved and is up ambulating. He had made comments regarding suicidal ideations and was texting his mother he had a plan while in the hospital room. For this reason suicide sitter was placed at the bedside and psychiatry evaluated the patient. He had an intake an [facility] however is now recommending for inpatient psychiatric evaluation. Patients adoptive mother has petitioned the patient and has provided a new petition today regarding this statements about his mental health and family has significant concerns regarding patients ability to care for himself. He cannot leave AMA at this time. Patient found to have elevated lactic acid 0.3 on admission which has since normalized. His CBC and electrolytes are essentially unremarkable. He had a mildly elevated bilirubin of 1.4 on admission and an AST of 68 which have both improved. He is not reporting any chest pain shortness of breath nausea vomiting or diarrhea. He is not having any headache dizziness or lightheaded. Was moved to the inpatient psychiatric unit. He was having auditory and visual hallucinations was started on scheduled Librium with improvement in the symptoms per his sitter at the bedside. This could be further increased up to 50 mg twice 3 times a day as needed. His blood work today does reveal a sodium level of 135, potassium 3.4, glucose of 120, AST of 70, chloride of 95 and a CO2 of 34. His urinalysis is negative. TSH is within normal limits. REVIEW OF SYSTEMS: CONSTITUTIONAL: No fever, no malaise, no fatigue. HEENT: No recent visual problems or hearing problems. Denied any sore throat. CARDIOVASCULAR: No chest pain, orthopnea, PND, no palpitations, no syncope. PULMONARY: No shortness of breath, no cough, no hemoptysis. GASTROINTESTINAL: No diarrhea, no nausea, no vomiting, no abdominal pain. NEUROLOGICAL: No headaches, no weakness, no numbness. HEMATOLOGICAL: Denies any bleeding or petechiae. GENITOURINARY: Denies any burning micturition, frequency, or urgency. MUSCULOSKELETAL/RHEUMATOLOGICAL: Denies any joint pain, swelling, or any muscle pain. ENDOCRINE: Denies any polyuria or polydipsia. The rest of the 14-point review of systems is negative. PHYSICAL EXAMINATION: GENERAL: The patient is alert and oriented x3, not in any acute distress. Well developed, well nourished. HEENT: Pupils are round and equally reacting to light. EOMI. No scleral icterus. No conjunctival pallor. Normocephalic, atraumatic. No pharyngeal erythema. No thyromegaly. CARDIOVASCULAR: S1 and S2 present. No murmurs, rubs, or gallops. PULMONARY: Chest is clear to auscultation, no wheezing or crackles. ABDOMEN: Soft, nontender, nondistended, normoactive bowel sounds. No palpable organomegaly. MUSCULOSKELETAL: No joint swelling or deformity. EXTREMITIES: No cyanosis, clubbing, or pedal edema. NEUROLOGICAL: Gross neurological examination did not reveal any focal deficits. SKIN: No rashes. Assessment and plan Alcohol use disorder and acute alcohol intoxication and withdrawal Visual hallucinations secondary to above Hypokalemia replace with oral supplementation Substance use with marijuana also on suboxone Nicotine dependence Lactic acidosis resolved Elevated AST from chronic alcoholism Hyperbilirubinemia from alcholism normalized hx of DVT not currently on anticoagulation. hx of depression GI prophylaxis Full code Patient admitted to the psychiatric unit for further evaluation and treatment Replace potassium with 40 meq of oral supplementation Monitor platelet count Patient has not started on scheduled Librium and can increase up to 50 mg 3 times a day if needed Thank you for this consultation we will continue to following this hospital stay The impression and plan of care has been dictated by Amie Cruz Nurse Practitioner as directed. Dr. Armond MD I have performed a history and physical examination and medical decision making of this patient, discussed the same with the dictator, and agree with the dictators assessment and plan as written, documented as a scribe. Based on total visit time, I have performed more than 50% of this visit. Past Medical History Past Medical History: Deep Vein Thrombosis (DVT) Additional Past Medical History / Comment(s): ETOH History of Any Multi-Drug Resistant Organisms: None Reported Past Surgical History: No Surgical Hx Reported Past Psychological History: Depression Smoking Status: Vaper Past Alcohol Use History: Abuse, Daily Past Drug Use History: None Reported Medications and Allergies Home Medications Medication Instructions Recorded Confirmed Type Buprenorphine HCl/Naloxone HCl 2 film SL DIRECTED 06/06/24 06/10/24 History [Suboxone 8 mg-2 mg Sl Film] QUEtiapine [SEROquel] 50 - 100 mg PO HS PRN 06/06/24 06/10/24 History chlordiazePOXIDE HCl [Librium] 10 mg PO DIRECTED 06/06/24 06/10/24 History chlordiazePOXIDE HCl [Librium] 25 mg PO DIRECTED PRN 06/06/24 06/10/24 History Acetaminophen Tab [Tylenol] 500 mg PO Q6HR PRN tab 06/09/24 06/10/24 Rx FLUoxetine HCL [PROzac] 20 mg PO DAILY cap 06/09/24 06/10/24 Rx Famotidine [Pepcid] 20 mg PO DAILY #30 tablet 06/09/24 06/10/24 Rx Nicotine 21Mg/24Hr Patch [Habitrol] 1 each TRANSDERM DAILY #7 patch 06/09/24 06/10/24 Rx chlordiazePOXIDE HCl [Librium] 25 mg PO TID cap 06/09/24 06/10/24 Rx Allergies Allergy/AdvReac Type Severity Reaction Status Date / Time No Known Allergies Allergy Verified 06/06/24 17:20 Physical Exam Vitals: Vital Signs Temp Pulse Resp BP Pulse Ox 06/10/24 07:45 97.1 F L 111 H 128/79 96 06/10/24 04:20 96.7 F L 104 H 18 140/89 94 L 06/10/24 01:00 97.1 F L 92 20 165/91 95 Intake and Output 06/09/24 06/10/24 06/10/24 22:59 06:59 14:59 Other: Weight 95 kg 110.2 kg Results CBC & Chem 7: 06/10/24 07:35 06/10/24 07:35 Labs: Abnormal Lab Results - Last 24 Hours (Table) 06/10/24 06/10/24 Range/Units 07:35 07:35 RBC 4.24 L (4.30-5.90) m/uL Hct 37.3 L (39.0-53.0) % Plt Count 70 L (150-450) k/uL Lymphocytes # 0.5 L (1.0-4.8) k/uL Sodium 135 L (137-145) mmol/L Potassium 3.4 L (3.5-5.1) mmol/L Chloride 95 L (98-107) mmol/L Carbon Dioxide 34 H (22-30) mmol/L Glucose 120 H (74-99) mg/dL AST 70 H (17-59) U/L Assessment and Plan Time with Patient: Less than 30
[2024-06-10 13:32] LABS: Chol/HDL Ratio 1.42 Ratio; LDL Cholesterol,Calculated 47.7 mg/dL (0.0-131.0); VLDL Calculation 8.26 mg/dL (5.00-40.00)
[2024-06-10 15:01] VITALS: BP 158/102; TEMP 97.2
[2024-06-10] MEDS: LORazepam 1 MG TAB PO SCH (15:22)
[2024-06-10] MEDS: cloNIDine HCL 0.1 MG TAB PO SCH (15:22)
--- NOTE | 2024-06-10 16:53 | P.DS ---
Providers Date of admission: 06/10/24 00:20 Expected date of discharge: 06/10/24 Attending physician: Oswald Melgar MD Consults: 06/09/24 22:48 Consult Physician Routine Consulting Provider: Colt Keating Consult Reason/Comments: History and Physical Do you want consulting provider notified?: Yes Primary care physician: Stated None - Discharge Diagnosis(es) (1) Alcohol withdrawal Current Visit: Yes Status: Acute Priority: High (2) Depressive disorder Current Visit: Yes Status: Chronic Priority: High (3) Psychotic disorder Current Visit: Yes Status: Acute Priority: Medium Hospital Course: Admission HPI: Patient was initially admitted to the medical floor due to alcohol withdrawal. He presented from [place] due to alcohol withdrawal and agitation and was medically cleared prior to transfer to this floor. He was seen by psychiatry while hospitalized on the medical unit and was deemed needing psychiatric hospitalization due to suicidal ideation and hallucinations. His mother expressed concerns because of his heavy alcohol use and also concerns about him expressing AVH, with hearing voices that "are saying they are going to kill him " and visualizing a "little green akiko" which has been prompting him to state "he is going to kill himself before the green akiko does ". Patient is A&Ox2 to self, location, month, and year. He was cooperative done assessment this morning. He was making bizarre motions to grab at "a feather" that was not visible to this provider. He endorses having been feeling depressed and that he has been drinking heavily for a long time with the most recent drink being prior to admission (last drink before or on 06/06). He also reports having used ketamine and LSD prior to admission. Claims that he was drinking about 1-2 fifths of vodka daily for about 15 years now. Maximino reports feeling depressed, having poor appetite, having trouble sleeping, having little energy, and endorses suicidal ideation. However, he does not expand on this further. He denies homicidal ideation and denies access to firearms. He denies symptoms consistent with jan while sober of all substances. He denies current auditory hallucinations. He occasionally makes nonsensical statements about concerns that his family burned in a fire and then says that he will not elaborate on this further. Patient appears to be somewhat paranoid. Patient is also noted to have no physical symptoms of alcohol withdrawal although he reports visual hallucinations occasionally and is noted to be responding to them. He has been on Librium and Ativan PRN and tolerating these well. He denies a history of alcohol withdrawal seizures or a prior hx of Auditory and visual hallucinations. He reports compliance with outpatient psychotropic medications including Prozac and Suboxone. Admission note was completed by this proposal lead writer. Hospital course: Upon admission to the unit patient was directable and agreeable to commence treatment and signed adult voluntary form. Patient was compliant with the medications and denied any side effects during the day of admission. Patient was started on Seroquel and Catapres. Prozac, CIWA protocol with Ativan, vitamins, Librium, Suboxone, and Nicotine patch were all continued. On day of admission, which is also the day of discharge, patient was given a total of 4 mg of Ativan along with Librium 50 mg. He was also started on Catapres to control unstable vitals. However, patient's alcohol withdrawal was progressively worsening during admission and he was experiencing worsened visual hallucinations. CIWA was 17 at 1622. To prevent medical decompensation and respiratory depression on the psychiatric inpatient floor, patient was transferred to the medical unit for his safety, with a petition for mental health treatment and recommendation to be continued on health and safety tech. Patient was also seen by medical team for history and physical exam. Mental status exam: General Appearance: Patient appears to be overweight, bald, has a gomez, stated age is alert, vague. Patient appears to have poor hygiene and grooming with fair eye contact. Behavior: Notable, vague, evasive Speech: Patient's speech is fluent and nonpressured. [place] Mood/Affect: Patient reports their mood is "depressed", affect is congruent and constricted Suicidality/Homicidality: Endorses suicidal ideation and denies homicidal ideation Perceptions: Patient denies any auditory hallucinations. Endorses visual hallucinations Though content/process: [place], evasive vague. Illogical at times. Memory and concentration: AOX2, fair concentration Judgment and insight: Poor/impulsive Impression: Depressive disorder, unspecified Psychotic disorder, unspecified R/o alcohol induced mood disorder Alcohol use disorder, severe dependence, currently in withdrawal Cannabis use disorder Nicotine dependence Hx hallucinogen abuse Plan: -Continue with discharge today as patient needs medical stabilization. Patient will need consult for psychiatry for reassessing need for admission -Continue medications: Prozac 20 mg daily, Suboxone per outpatient tx (MAPS reviewed and no concern for diversion) Librium 25 mg TID for alcohol withdrawal - per discretion of medical provider Seroquel 100 mg qHS for psychosis and sleep Clonidine 0.1 mg BID for alcohol withdrawal - per discretion of medical provider -Patient was counseled on the need for medication compliance and appropriate follow-up at mental health and also primary care for medical issues. Patient verbalized understanding and agreed. -Patient counseled on abstaining from recreational drugs and marijuana and alcohol. Was informed/educated on the adverse effects on their physical and mental health. Patient verbally agreed and understood. -Patient was instructed to return to the hospital or seek immediate medical care if their psychiatric or medical symptoms do worsen or reoccur. Vital Signs Temp 97.2 F L 06/10/24 15:06 Pulse 111 H 06/10/24 15:06 Resp 18 06/10/24 04:20 BP 158/102 06/10/24 15:06 Pulse Ox 100 06/10/24 15:06 FiO2 Intake & Output 06/09/24 06/10/24 06/10/24 18:59 06:59 18:59 Weight 110.2 kg Patient Condition at Discharge: Serious Plan - Discharge Summary Discharge Rx Participant: Yes New Discharge Prescriptions: New cloNIDine HCL [Catapres] 0.1 mg PO BID tab chlordiazePOXIDE HCl [Librium] 25 mg PO TID cap QUEtiapine [SEROquel] 100 mg PO HS tab Albuterol Inhaler [Ventolin Hfa Inhaler] 1 puff INHALATION RT-QID PRN each PRN Reason: Shortness Of Breath Or Wheezing Continue Buprenorphine HCl/Naloxone HCl [Suboxone 8 mg-2 mg Sl Film] 2 film SL DIRECTED Nicotine 21Mg/24Hr Patch [Habitrol] 1 each TRANSDERM DAILY #7 patch FLUoxetine HCL [PROzac] 20 mg PO DAILY cap Famotidine [Pepcid] 20 mg PO DAILY #30 tablet Discontinued chlordiazePOXIDE HCl [Librium] 25 mg PO DIRECTED PRN PRN Reason: Anxiety chlordiazePOXIDE HCl [Librium] 10 mg PO DIRECTED QUEtiapine [SEROquel] 50 - 100 mg PO HS PRN PRN Reason: Insomnia chlordiazePOXIDE HCl [Librium] 25 mg PO TID cap Acetaminophen Tab [Tylenol] 500 mg PO Q6HR PRN tab PRN Reason: Fever And/ Or Pain Discharge Medication List Buprenorphine HCl/Naloxone HCl [Suboxone 8 mg-2 mg Sl Film] 2 film SL DIRECTED 06/06/24 [History] FLUoxetine HCL [PROzac] 20 mg PO DAILY cap 06/09/24 [Rx] Famotidine [Pepcid] 20 mg PO DAILY #30 tablet 06/09/24 [Rx] Nicotine 21Mg/24Hr Patch [Habitrol] 1 each TRANSDERM DAILY #7 patch 06/09/24 [Rx] Albuterol Inhaler [Ventolin Hfa Inhaler] 1 puff INHALATION RT-QID PRN each 06/10/24 [Rx] QUEtiapine [SEROquel] 100 mg PO HS tab 06/10/24 [Rx] chlordiazePOXIDE HCl [Librium] 25 mg PO TID cap 06/10/24 [Rx] cloNIDine HCL [Catapres] 0.1 mg PO BID tab 06/10/24 [Rx] Patient Instructions/Handouts: Alcohol Withdrawal (IP) Discharge Disposition: OTHER INSTITUTION NOT DEFINED
[2024-06-10] MEDS ORDERED: cloNIDine HCL 0.1 MG TAB PO SCH (21:00)
[2024-06-10] MEDS ORDERED: QUEtiapine 100 MG TAB PO SCH (21:00)
== END 2024-06-10 16:37 | disposition other institution (70) | DRG 754 ==
LOC: 3MHU 06-10 00:20
PROVIDERS: ADMIT Psychiatry & Neurology Psychiatry; ATTEND Psychiatry & Neurology Psychiatry
DX: F32.A Depression, unspecified (principal); F10.239 Alcohol dependence with withdrawal, unspecified; E87.20 Acidosis, unspecified; E87.6 Hypokalemia; F10.229 Alcohol dependence with intoxication, unspecified; F12.10 Cannabis abuse, uncomplicated; F17.200 Nicotine dependence, unspecified, uncomplicated; F29 Unspecified psychosis not due to a substance or known physiological condition; R45.851 Suicidal ideations; Y90.8 Blood alcohol level of 240 mg/100 ml or more; Z79.899 Other long term (current) drug therapy; Z86.718 Personal history of other venous thrombosis and embolism
CPT/HCPCS: 80053; 80061; 81003; 82248; 83036; 84443; 85025

== ENCOUNTER 2024-06-10 15:46 | Inpatient (IN) | payer MEDICAID, OTHER ==
[2024-06-10] MEDS ORDERED: NALOXONE 0.4 MG/ML 1 ML VIAL IV PRN (17:01)
[2024-06-10] MEDS ORDERED: ONDANSETRON 4 MG/2 ML VIAL IVP PRN (17:01)
[2024-06-10] MEDS: chlordiazePOXIDE 25 MG CAP PO SCH (17:28)
[2024-06-10] MEDS: LORazepam 2 MG/ML INJ IV PRN ×2 (17:28→18:20)
[2024-06-10] MEDS: OLANZapine 10 MG VIAL IM STA ×2 (21:37→22:44)
[2024-06-10] MEDS: LORazepam 2 MG/ML INJ IV STA (22:14)
[2024-06-11] MEDS: OLANZapine 10 MG VIAL IM STA (02:21)
[2024-06-11 10:23] LABS: ALT 25 U/L (10-49); AST 57 U/L (14-35); Albumin/Globulin Ratio 1.82 Ratio (1.60-3.17); Alkaline Phosphatase 54 U/L (41-126); BUN/Creat Ratio 16.38 Ratio (12.00-20.00); Blood Urea Nitrogen 13.1 mg/dL (9.0-27.0); Calcium 8.5 mg/dL (8.7-10.3); Carbon Dioxide 27.3 mmol/L (21.6-31.8); Chloride 101 mmol/L (96-109); Globulin 2.2 g/dL (1.6-3.3); Glucose 87 mg/dL (70-110); Potassium 3.3 mmol/L (3.5-5.5); Sodium 141 mmol/L (135-145); Total Protein 6.2 g/dL (6.2-8.2)
[2024-06-11 11:24] LABS: Basophils # (A) 0.02 X 10*3/uL (0.00-0.10); Basophils % (A) 0.5 %; Eosinophils # (A) 0.14 X 10*3/uL (0.04-0.35); Eosinophils % (A) 3.8 %; HGB 12.1 g/dL (13.0-17.0); Immature Grans, Automated 0 %; Immature Platelet Fraction 4.1 % (1.1-6.1); Lymphocytes # (A) 0.88 X 10*3/uL (0.90-5.00); MCH 29.6 pg (27.0-32.0); MCHC 33.6 g/dL (32.0-37.0); Mean Platelet Volume 10.8 FL (9.5-12.2); Monocytes # (A) 0.56 X 10*3/uL (0.20-1.00); Monocytes % (A) 15.3 %; NRBC Per 100 WBC 0 X 10*3/uL (0.00-0.01); Neutrophils # (A) 2.06 X 10*3/uL (1.80-7.70); Neutrophils % (A) 56.4 %; Platelet Count 61 X 10*3/uL (140-440); RBC 4.09 X 10*6/uL (4.40-5.60); RDW 13.3 % (11.5-14.5); WBC 3.66 X 10*3/uL (4.50-10.00)
[2024-06-11] MEDS ORDERED: ALBUTEROL HFA INHALER INHALATION PRN (13:18)
[2024-06-11] MEDS ORDERED: Potassium Replacement Protocol 1 EACH MISC MISCELLANE PRN (13:21)
--- NOTE | 2024-06-11 13:58 | P.CNPUL ---
History of Present Illness Consult date: 06/11/24 Chief complaint: Agitation secondary to alcohol withdrawals History of present illness: This is a consultation for delirium tremens. This patient is a 38-year-old alcoholic who was having signs of active delirium tremens yesterday. The patien ricky was being considered to be transferred to the intensive care unit. Nevertheless, his case was treated with a combination of Ativan and the patient was given a total of 20 mg of Zyprexa overnight which helped his agitation and ongoing hallucination. Currently, he still lethargic and confused. Ne vertheless, no significant agitation and the patient is currently an bed. He was having hallucinations earlier. Note that the patient was brought into the hospital for alcohol withdrawals. He is known to have alcoholism. He is also known to have history of substance abuse, marijuana smoking, tobacco smoking and depression. No nausea. No vomiting. No abdominal pain. No chest pain. No focal neurological deficits. He remains hemodynamically stable at this point in time. The white cell count of 3.6 with a hemoglobin of 12 and a platelet count of 61. LFTs are showing some mild elevation of the AST. Normal bilirubin. UA is negative. COVID-19 testing is also negative. Review of Systems ROS unobtainable: due to mental status Past Medical History Past Medical History: Deep Vein Thrombosis (DVT) Additional Past Medical History / Comment(s): ETOH History of Any Multi-Drug Resistant Organisms: None Reported Past Surgical History: No Surgical Hx Reported Past Psychological History: Depression Smoking Status: Vaper Past Alcohol Use History: Abuse, Daily Past Drug Use History: None Reported Medications and Allergies Home Medications Medication Instructions Recorded Confirmed Type Buprenorphine HCl/Naloxone HCl 2 film SL DIRECTED 06/06/24 06/10/24 History [Suboxone 8 mg-2 mg Sl Film] FLUoxetine HCL [PROzac] 20 mg PO DAILY cap 06/09/24 06/10/24 Rx Famotidine [Pepcid] 20 mg PO DAILY #30 tablet 06/09/24 06/10/24 Rx Nicotine 21Mg/24Hr Patch [Habitrol] 1 each TRANSDERM DAILY #7 patch 06/09/24 06/10/24 Rx Albuterol Inhaler [Ventolin Hfa 1 puff INHALATION RT-QID PRN each 06/10/24 06/10/24 Rx Inhaler] QUEtiapine [SEROquel] 100 mg PO HS tab 06/10/24 06/10/24 Rx chlordiazePOXIDE HCl [Librium] 25 mg PO TID cap 06/10/24 06/10/24 Rx cloNIDine HCL [Catapres] 0.1 mg PO BID tab 06/10/24 06/10/24 Rx Allergies Allergy/AdvReac Type Severity Reaction Status Date / Time No Known Allergies Allergy Verified 06/06/24 17:20 Physical Exam Vitals: Vital Signs Temp Pulse Resp BP BP Pulse Ox 06/11/24 07:26 98.1 F 75 16 166/91 98 06/11/24 04:17 73 16 95 06/11/24 02:55 79 12 92 L 06/11/24 00:05 97 18 138/85 90 L 06/10/24 19:14 111 H 18 130/88 96 06/10/24 16:48 99.3 F 111 H 24 168/102 94 L Intake and Output 06/10/24 06/11/24 06/11/24 22:59 06:59 14:59 Output Total 800 Balance -800 Output: Urine 800 Other: Voiding Method Diaper # Voids 1 Weight 109 kg The patient appeared well nourished and normally developed. Vital signs as documented. Head exam is unremarkable. No scleral icterus or corneal arcus noted. Neck is without jugular venous distension, thyromegaly, or carotid bruits. Carotid upstrokes are brisk bilaterally. Lungs are clear to auscultation and percussion. Cardiac exam reveals the PMI to be normally sized and situated. Rhythm is regular. First and second heart sounds normal. No murmurs, rubs or gallops. Abdominal exam reveals normal bowel sounds, no masses, no organomegaly and no aortic enlargement. Extremities are nonedematous and both femoral and pedal pulses are normal. Examination of the skin revealed no evidence of significant rashes, suspicious appearing nevi or other concerning lesions. Neurologically, the patient is lethargic, confused, yet no significant agitation and the patient does not have any focal neurological deficit. Cranial nerves are essentially intact. Results - Laboratory Findings CBC and BMP: 06/11/24 04:25 06/11/24 04:25 Abnormal lab findings: Abnormal Labs 06/11/24 06/11/24 04:25 04:25 WBC 3.66 L RBC 4.09 L Hgb 12.1 L Hct 36.0 L Plt Count 61 L Lymphocytes # 0.88 L Potassium 3.3 L Anion Gap 12.70 H Calcium 8.5 L AST 57 H Assessment and Plan Plan: Acute alcohol withdrawal/delirium tremens Altered mentation secondary to above Agitation secondary to above Hallucinations secondary to above Chronic alcoholism Chronic thrombocytopenia secondary to alcoholism Depression Polysubstance abuse Remote history of DVT Plan Keep the patient on the medical f floor for now with close monitoring. No need for ICU stay. Agitation has somewhat improved. The patient is currently on Ativan per [facility] protocol. The patient is also on Librium 25 mg p.o. 4 times daily. The patient will be given Seroquel 100 mg at bedtime. Thiamine. Multivitamins. IV fluids. Sitter at the bedside. Will follow. Contact me back should his condition decompensated the patient gets worse.
--- NOTE | 2024-06-11 14:03 | P.HPIM ---
History of Present Illness H&P Date: 06/11/24 This is a 38-year-old male who presented to the emergency department with alcohol intoxication that had presented to [place] [place] although sent here for further evaluation as patient was found to be intoxicated. Patient was on the medical floor in medically stable and transferred over to 3 W. although having increased hallucinations and CIWA scale over 20 and per psychiatry patient was transferred back to the medical unit for further medical clearance and evaluation. Psychiatry was consulted and pending. Patient will be placed back on CIWA protocol along with Valium and monitor closely. Patient is petitioned and unable to leave at this time. Patient is extremely noncompliant and current ly does not have a primary care provider and apparently has been receiving Suboxone online from a doctor in [place]. Will hold Suboxone for now. Patient does have history of DVT although has not been taking any medications for this. Continue with suicide sitter at this time. REVIEW OF SYSTEMS: CONSTITUTIONAL: No fever, no malaise, no fatigue. HEENT: No recent visual problems or hearing problems. Denied any sore throat. CARDIOVASCULAR: No chest pain, orthopnea, PND, no palpitations, no syncope. PULMONARY: No shortness of breath, no cough, no hemoptysis. GASTROINTESTINAL: No diarrhea, no nausea, no vomiting, no abdominal pain. NEUROLOGICAL: No headaches, no weakness, no numbness. HEMATOLOGICAL: Denies any bleeding or petechiae. GENITOURINARY: Denies any burning micturition, frequency, or urgency. MUSCULOSKELETAL/RHEUMATOLOGICAL: Denies any joint pain, swelling, or any muscle pain. ENDOCRINE: Denies any polyuria or polydipsia. The rest of the 14-point review of systems is negative. PHYSICAL EXAMINATION: GENERAL: The patient is alert and oriented x2, delusional at times, heavily sedated. Well developed, appears older than stated age, obese HEENT: Pupils are round and equally reacting to light. EOMI. No scleral icterus. No conjunctival pallor. Normocephalic, atraumatic. No pharyngeal erythema. No thyromegaly. CARDIOVASCULAR: S1 and S2 muffled PULMONARY: Diminished breath sounds bilaterally otherwise chest is clear to auscultation, no wheezing or crackles. ABDOMEN: Soft, nontender, nondistended, normoactive bowel sounds. No palpable organomegaly. MUSCULOSKELETAL: No joint swelling or deformity. EXTREMITIES: No cyanosis, clubbing, or pedal edema. NEUROLOGICAL: Gross neurological examination did not reveal any focal deficits. SKIN: No rashes. Assessment: Alcohol intoxication with acute delirium tremens with acute alcohol withdrawal Severe CIWA scale secondary to alcohol withdrawal History of DVT History of depression with suicidal ideation Severe alcohol abuse daily History of vaping THC usage and abuse Obesity with a BMI of 34.5 GI prophylaxis DVT prophylaxis Full code Plan: Patient was over on 3 W. psychiatric unit although per nursing staff having increased hallucinations and erratic behavior and CIWA scale was elevated and patient transferred back to medical unit for further medical clearance Patient is on CIWA scale and will continue along with Librium taper Apparently per nonbiological mother who has been caring for him and helping him for many years reports he has been getting Suboxone online from some doctor out of [place] who has never seen the patient. Will hold Suboxone at this time Continue to monitor for improvements in withdrawal as patient required heavy amounts of Valium and Ativan overnight and is maintained on Librium and recommending monitoring on the medical unit over the next 24 to 48 hours prior to transfer back to the psychiatric unit for further psychiatric evaluation and admission. Patient is petitioned and medically sorted and will require a recert tomorrow 06/12/2024. Patient is not able to leave AMA and is a flight risk Other home medications reviewed and resumed as appropriate It is reported on his medical record he has history of DVT although is not taking anything for this and is a poor historian with acute alcohol withdrawal noted Continue safety suicide sitter with one-to-one supervision Possible transfer to 3 W. psychiatric unit in the next 24 to 48 hours The impression and plan of care has been dictated by Isabel Rajput, Nurse Practitioner as directed. Dr. Armond MD I have performed a history and examination and MDM of this patient, discussed the same with the dictator, and agree with the dictator's assessment and plan as written ,documented as a scribe. Based on total visit time, I have performed more than 50% of the visit. Past Medical History Past Medical History: Deep Vein Thrombosis (DVT) Additional Past Medical History / Comment(s): ETOH History of Any Multi-Drug Resistant Organisms: None Reported Past Surgical History: No Surgical Hx Reported Past Psychological History: Depression Smoking Status: Vaper Past Alcohol Use History: Abuse, Daily Past Drug Use History: None Reported Medications and Allergies Home Medications Medication Instructions Recorded Confirmed Type Buprenorphine HCl/Naloxone HCl 2 film SL DIRECTED 06/06/24 06/10/24 History [Suboxone 8 mg-2 mg Sl Film] FLUoxetine HCL [PROzac] 20 mg PO DAILY cap 06/09/24 06/10/24 Rx Famotidine [Pepcid] 20 mg PO DAILY #30 tablet 06/09/24 06/10/24 Rx Nicotine 21Mg/24Hr Patch [Habitrol] 1 each TRANSDERM DAILY #7 patch 06/09/24 06/10/24 Rx Albuterol Inhaler [Ventolin Hfa 1 puff INHALATION RT-QID PRN each 06/10/24 06/10/24 Rx Inhaler] QUEtiapine [SEROquel] 100 mg PO HS tab 06/10/24 06/10/24 Rx chlordiazePOXIDE HCl [Librium] 25 mg PO TID cap 06/10/24 06/10/24 Rx cloNIDine HCL [Catapres] 0.1 mg PO BID tab 06/10/24 06/10/24 Rx Allergies Allergy/AdvReac Type Severity Reaction Status Date / Time No Known Allergies Allergy Verified 06/06/24 17:20 Physical Exam Vitals: Vital Signs Temp Pulse Resp BP BP Pulse Ox 06/11/24 12:48 97.6 F 89 16 133/69 95 06/11/24 07:26 98.1 F 75 16 166/91 98 06/11/24 04:17 73 16 95 06/11/24 02:55 79 12 92 L 06/11/24 00:05 97 18 138/85 90 L 06/10/24 19:14 111 H 18 130/88 96 06/10/24 16:48 99.3 F 111 H 24 168/102 94 L Intake and Output 06/10/24 06/11/24 06/11/24 22:59 06:59 14:59 Output Total 800 Balance -800 Output: Urine 800 Other: Voiding Method Diaper Diaper # Voids 1 Weight 109 kg Results CBC & Chem 7: 06/11/24 04:25 06/11/24 04:25 Labs: Abnormal Lab Results - Last 24 Hours (Table) 06/11/24 06/11/24 Range/Units 04:25 04:25 WBC 3.66 L (4.50-10.00) X 10*3/uL RBC 4.09 L (4.40-5.60) X 10*6/uL Hgb 12.1 L (13.0-17.0) g/dL Hct 36.0 L (39.6-50.0) % Plt Count 61 L (140-440) X 10*3/uL Lymphocytes # 0.88 L (0.90-5.00) X 10*3/uL Potassium 3.3 L (3.5-5.5) mmol/L Anion Gap 12.70 H (4.00-12.00) mmol/L Calcium 8.5 L (8.7-10.3) mg/dL AST 57 H (14-35) U/L
[2024-06-11] MEDS: cloNIDine HCL 0.1 MG TAB PO SCH (14:05)
[2024-06-11] MEDS: NICOTINE 21MG/24HR PATCH TRANSDERM SCH (14:05)
[2024-06-11] MEDS: POTASSIUM CHLORIDE ER 20 MEQ TAB.ER PO SCH (14:05)
[2024-06-11] MEDS: PANTOPRAZOLE 40 MG TABLET PO SCH (14:05)
--- NOTE | 2024-06-11 14:15 | P.CN ---
Psychiatric Consult - . Consult date: 06/11/24 Consult:: 06/11/24 13:58 IDENTIFYING DATA: This patient is a 38-year-old male REASON FOR REFERRAL: Psychiatry was consulted for recent transfer from psychiatric hospitalization due to medical complications HISTORY OF PRESENT ILLNESS: The patient presented to the hospital for alcohol withdrawal and delirium while on the Inpatient psychiatric unit. Patient had been admitted to the psychiatric unit for depression and had expressed to his mother thoughts of wanting to kill himself. Please see the notes from 06/10/2024 for full H&P. Patient's last alcoholic drink was likely on 06/06. Patient was seen bedside this afternoon. AOX1 to self. He continues to be confused and making nonsensical statements. He is drowsy and is a poor historian. He cannot recall events in the past few days. He reports sleeping significantly better last night. He endorses good appetite. He was diaphoretic but not tremulous on exam. At this time patient denies any suicidal or homicidal ideations, intent or plan. Patient denies any auditory, visual hallucinations and denies any paranoia or delusions. This provider spoke with his mother separately who states that she continues to be concerned about his mental health. She states that he has expressed suicidal ideation recurrently in the recent past and believes that he has been drinking as a form of self-harm. She also states that he has told her numerous times in the past that he wants to kill himself because keeps seeing "a little green akiko". She is concerned about his safety and was very glad to hear he is being held for psychiatric care following medical stabilization. PAST PSYCHIATRIC HISTORY: He claims that he is currently on Prozac and Suboxone patient denies any previous psychiatric hospitalizations. He states Prozac has been helpful and would like to be continued on this. Patient denies any psychiatric outpatient follow-up. Patient denies any history of suicide attempts in the past. Reports having tried Seroquel in the past and states it was helpful for sleep. PAST MEDICAL HISTORY: As per medical H&P ALLERGIES: as per EMR. CHEMICAL DEPENDENCY HISTORY: LSD & ketamine: Used it prior to admission. Alcohol: As per HPI Cocaine: Denies Tobacco: Vape Cannabis: Frequent use Denies using other substances FAMILY PSYCHIATRIC/SUBSTANCE USE HISTORY: Claims that his biological mother had bipolar and schizophrenia, does not know anything about his biological father. SOCIAL HISTORY: Patient was born and raised in [place] and also in [place]. Claims that he was adopted at a young age, is living with his adoptive mother. He is working at [employer]. He has no kids he is . He apparently completed high school and did some college. States that he went to senior care and released on January 2024 for domestic violence charges. MENTAL STATUS EXAM: General Appearance: Patient appears to be overweight, bald, has a gomez, stated age is somnolent, vague. Patient appears to have poor hygiene and poor eye contact Behavior: Notable, vague, evasive, restless Speech: Patient's speech is fluent and nonpressured. [place] Mood/Affect: Patient reports their mood is depressed, affect is congruent and constricted Suicidality/Homicidality: Recently expressed suicidal ideation. Denying homicidal ideation Perceptions: Patient denies any auditory hallucinations. Endorses visual hallucinations Though content/process: vague. Nonsensical unrelated statements Memory and concentration: AOX1 to self, poor concentration Judgment and insight: Poor/impulsive IMPRESSIONS: Acute delirium likely from alcohol withdrawal Depressive disorder, unspecified Psychotic disorder, unspecified - likely secondary to delirium from alcohol withdrawal R/o alcohol induced mood disorder Alcohol use disorder, severe dependence, currently in withdrawal Cannabis use disorder Nicotine dependence Hx hallucinogen abuse PLAN: -At this time patient DOES meet criteria for inpatient psychiatric admission. -Patient DOES NOT have decision making capacity at this time and is unable to reason through and communicate/appreciate the risks, benefits and alternatives to treatment. -Delirium precautions recommended with patient including - avoiding use of narcotics and [place] sedatives, limit anticholinergic medications when possible, frequent re-orientation, minimize use of restraints, open window shades during the day and close them at night -Would recommend the following medication changes/additions: Continue Prozac 20 mg daily and Seroquel 100 mg qHS -Recommend tapering Librium and Catapres as tolerated, per primary team -CIWA protocol with PRN Ativan for alcohol withdrawal. Continue to monitor vital signs. Per primary team management -Continue 1:1 sitter for safety -Cannot leave AMA at this time. Primary team to maintain active petition and certificate -When medically stable, patient is eligible for transfer to a psych bed when available. -Communicated plan to patient's nurse -Will continue to follow along -Please contact with any questions.
[2024-06-11] MEDS: SALT AND SODA MOUTHWASH 1,000 ML PO SCH (15:01)
[2024-06-11] MEDS: FLUoxetine HCL 20 MG CAP PO SCH (15:01)
[2024-06-11] MEDS: NYSTATIN 100,000 UNIT/ML SUSP 500,000 UNIT/5 ML CUP PO SCH (16:37)
[2024-06-11] MEDS: LORazepam 2 MG/ML INJ IV PRN (16:45)
[2024-06-11] MEDS: QUEtiapine 100 MG TAB PO SCH (20:51)
[2024-06-11] MEDS: IBUPROFEN 400 MG TAB PO PRN (21:09)
--- NOTE | 2024-06-12 10:13 | P.PN ---
Subjective Progress Note Date: 06/12/24 This is a 38-year-old male patient with a known history of alcoholism, substance abuse, marijuana use, chronic tobacco dependence and depression. He had originally presented to here from [facility] after being found to be intoxicated. He was medically cleared and then transferred to [facility] for psychiatric issues. He began having hallucinations and his CIWA scale was over 20 and he was readmitted back to the medical unit for further evaluation yesterday. He was again placed on the CIWA protocol and was initially considered for ICU for delirium tremens but mainly resolved with medication. A safety and security officer is at the bedside. He is continued on Librium, clonidine, diazepam, Prozac, Ativan, Seroquel. NicoDerm patch in place. He is maintaining O2 saturations in the high 90s on room air. He has been afebrile. Hemodynamically stable. Objective - Vital Signs Vital signs: Vital Signs Temp 98 F 06/12/24 08:41 Pulse 100 06/12/24 08:41 Resp 18 06/12/24 08:41 BP 138/89 06/12/24 08:41 Pulse Ox 100 06/12/24 08:41 FiO2 Intake & Output 06/11/24 06/12/24 06/12/24 18:59 06:59 18:59 Intake Total 2336 420 Balance 2336 420 Intake: Oral 2336 420 Other: Voiding Method Diaper Urinal Diaper # Voids 2 2 - Exam GENERAL EXAM: Alert, 38-year-old male patient, on room air, comfortable in no apparent distress. HEAD: Normocephalic. EYES: Normal reaction of pupils, equal size. NOSE: Clear with pink turbinates. THROAT: No erythema or exudates. NECK: No masses, no JVD. CHEST: No chest wall deformity. LUNGS: Equal air entry with no crackles, wheeze, rhonchi or dullness. CVS: S1 and S2 normal with no audible murmur, regular rhythm. ABDOMEN: No hepatosplenomegaly, normal bowel sounds, no guarding or rigidity. SPINE: No scoliosis or deformity SKIN: No rashes CENTRAL NERVOUS SYSTEM: No focal deficits, tone is normal in all 4 extremities. EXTREMITIES: There is no peripheral edema. No clubbing, no cyanosis. Periphe ral pulses are intact. - Labs CBC & Chem 7: 06/11/24 04:25 06/11/24 04:25 Labs: Abnormal Lab Results - Last 24 Hours (Table) 06/11/24 06/11/24 Range/Units 04:25 04:25 WBC 3.66 L (4.50-10.00) X 10*3/uL RBC 4.09 L (4.40-5.60) X 10*6/uL Hgb 12.1 L (13.0-17.0) g/dL Hct 36.0 L (39.6-50.0) % Plt Count 61 L (140-440) X 10*3/uL Lymphocytes # 0.88 L (0.90-5.00) X 10*3/uL Potassium 3.3 L (3.5-5.5) mmol/L Anion Gap 12.70 H (4.00-12.00) mmol/L Calcium 8.5 L (8.7-10.3) mg/dL AST 57 H (14-35) U/L Assessment and Plan Assessment: Acute alcohol withdrawal/delirium tremens Altered mentation secondary to above, recovered Agitation secondary to above Hallucinations secondary to above Chronic alcoholism Chronic thrombocytopenia secondary to alcoholism Depression Polysubstance abuse Remote history of DVT Plan: The patient was seen and evaluated Labs and medications reviewed Currently stable and on room air swedish masseuse at the bedside Remains on the CIWA protocol NicoDerm patch in place Plan is to return to a psych bed at discharge This patient was seen independently by the pulmonary nurse practitioner address ing pulmonary/critical care issues I have personally seen and examined the patient, performed the documentation and the assessment and plan as written. Number of minutes spent on the visit: 25 Dictation was produced using [employer] dictation software. Please excuse any grammatical, word or spelling errors
[2024-06-12] MEDS: Buprenorphine Hcl/Naloxone Hcl [Suboxone 8 Mg-2 Mg Sl Film] 1 EACH Fil SUBLINGUAL SCH ×2 (18:32→18:38)
[2024-06-13] MEDS: ACETAMINOPHEN TAB 325 MG TAB PO PRN (04:18)
--- NOTE | 2024-06-13 05:56 | PN ---
PROGRESS NOTE SUBJECTIVE: Remains on Ativan, Prozac for depression, Catapres for hypertension, Valium for anxiety, backed on his buprenorphine, naloxone, Suboxone, but he takes for the last 6 months. Waiting for psych evaluation. OBJECTIVE: VITAL SIGNS: Temp 99.8, pulse 80 to 90, respiratory rate 16 to 18, blood pressure 130s to 140s over 70s to 80s, O2 of 95% to 99% on room air. CARDIOVASCULAR: S1, S2. LUNGS: Transmitted upper sounds. HEMATOLOGY: Negative Homans. PSYCH: Fair mood and affect. NEUROLOGIC: Alert and oriented x3. No tremors. ASSESSMENT: Nicoderm patch in place. Waiting for psych consult. Acute alcohol withdrawal, delirium tremens, agitation, hallucinations, chronic alcoholism, thrombocytopenia, depression, polysubstance abuse, no history of DVT. Prognosis guarded. Please see further orders. MMODL / IJN: [id number] /
--- NOTE | 2024-06-13 12:51 | P.PN ---
Subjective Progress Note Date: 06/13/24 This is a 38-year-old male patient with a known history of alcoholism, substance abuse, marijuana use, chronic tobacco dependence and depression. He had originally presented to here from [facility] after being found to be intoxicated. He was medically cleared and then transferred to [facility] for psychiatric issues. He began having hallucinations and his CIWA scale was over 20 and he was readmitted back to the medical unit for further evaluation yesterday. He was again placed on the CIWA protocol and was initially considered for ICU for delirium tremens but mainly resolved with medication. A safety admin assistant is at the bedside. He is continued on Librium, clonidine, diazepam, Prozac, Ativan, Seroquel. NicoDerm patch in place. He is maintaining O2 saturations in the high 90s on room air. He has been afebrile. Hemodynamically stable. The patient is seen today June 13, 2024 in follow-up on the regular medical floor. He is currently resting in bed. Awake and alert in no acute distress. pci security consultant remains at the bedside. He is maintaining good O2 saturations in the 90s on room air. Has been hemodynamically stable. He denies any hallucinations. He has been calm and cooperative. He remains on the CIWA protocol. Last Ativan was 06/11/2024. Objective - Vital Signs Vital signs: Vital Signs Temp 97.8 F 06/13/24 07:15 Pulse 54 L 06/13/24 07:15 Resp 16 06/13/24 07:15 BP 123/74 06/13/24 07:15 Pulse Ox 99 06/13/24 07:15 FiO2 Intake & Output 06/12/24 06/13/24 06/13/24 18:59 06:59 18:59 Intake Total 1200 Output Total 700 Balance -700 1200 Intake: Oral 1200 Output: Urine 700 Other: Voiding Method Urinal # Voids 2 2 - Exam GENERAL EXAM: Alert, 38-year-old male patient, sitting up in bed, on room air, in no apparent distress. HEAD: Normocephalic. EYES: Normal reaction of pupils, equal size. NOSE: Clear with pink turbinates. THROAT: No erythema or exudates. NECK: No masses, no JVD. CHEST: No chest wall deformity. LUNGS: Equal air entry with no crackles, wheeze, rhonchi or dullness. CVS: S1 and S2 normal with no audible murmur, regular rhythm. ABDOMEN: No hepatosplenomegaly, normal bowel sounds, no guarding or rigidity. SPINE: No scoliosis or deformity SKIN: No rashes CENTRAL NERVOUS SYSTEM: No focal deficits, tone is normal in all 4 extremities. EXTREMITIES: There is no peripheral edema. No clubbing, no cyanosis. Peripheral pulses are intact. - Labs CBC & Chem 7: 06/11/24 04:25 06/12/24 17:03 Assessment and Plan Assessment: Acute alcohol withdrawal/delirium tremens Altered mentation secondary to above, recovered Agitation secondary to above, recovered Hallucinations secondary to above, recovered Chronic alcoholism Chronic thrombocytopenia secondary to alcoholism Depression Polysubstance abuse Remote history of DVT Plan: The patient was seen and evaluated Medications reviewed Currently stable and on room air pci security consultant at the bedside Remains on the [facility] protocol Cleared for transfer back to inpatient psychiatric unit This patient was seen independently by the pulmonary nurse practitioner addressing pulmonary/critical care issues I have personally seen and examined the patient, performed the documentation and the assessment and plan as written. Number of minutes spent on the visit: 24 Dictation was produced using [employer] dictation software. Please excuse any grammatical, word or spelling errors
[2024-06-13 21:10] VITALS: RESP 16
--- NOTE | 2024-06-14 12:19 | P.PN ---
Subjective Progress Note Date: 06/14/24 This is a 38-year-old male patient with a known history of alcoholism, substance abuse, marijuana use, chronic tobacco dependence and depression. He had originally presented to here from [facility] after being found to be intoxicated. He was medically cleared and then transferred to [facility] for psychiatric issues. He began having hallucinations and his CIWA scale was over 20 and he was readmitted back to the medical unit for further evaluation yesterday. He was again placed on the CIWA protocol and was initially considered for ICU for delirium tremens but mainly resolved with medication. A safety leader is at the bedside. He is continued on Librium, clonidine, diazepam, Prozac, Ativan, Seroquel. NicoDerm patch in place. He is maintaining O2 saturations in the high 90s on room air. He has been afebrile. Hemodynamically stable. The patient is seen today June 13, 2024 in follow-up on the regular medical floor. He is currently resting in bed. Awake and alert in no acute distress. finish filer remains at the bedside. He is maintaining good O2 saturations in the 90s on room air. Has been hemodynamically stable. He denies any hallucinations. He has been calm and cooperative. He remains on the CIWA protocol. Last Ativan was 06/11/2024. The patient is seen today June 14, 2024 in follow-up on the regular medical floor. He is sitting up having breakfast. Awake and alert in no acute distress. Denies any hallucinations. He has been calm and cooperative. finish filer at the bedside. He is maintaining good O2 saturations in the upper 90s on room air. He has been afebrile. Hemodynamically stable. No new labs today. He remains on the CIWA protocol. NicoDerm patch in place. Objective - Vital Signs Vital signs: Vital Signs Temp 98.3 F 06/14/24 06:55 Pulse 66 06/14/24 06:55 Resp 16 06/14/24 06:55 BP 109/70 06/14/24 06:55 Pulse Ox 98 06/14/24 06:55 FiO2 Intake & Output 06/13/24 06/14/24 06/14/24 18:59 06:59 18:59 Intake Total 2760 590 240 Balance 2760 590 240 Intake: Oral 2760 590 240 Other: Voiding Method Toilet Toilet Urinal Urinal # Voids 2 3 - Exam GENERAL EXAM: Alert, calm, cooperative 38-year-old male patient, eating breakfast, on room air, in no apparent distress. HEAD: Normocephalic. EYES: Normal reaction of pupils, equal size. NOSE: Clear with pink turbinates. THROAT: No erythema or exudates. NECK: No masses, no JVD. CHEST: No chest wall deformity. LUNGS: Equal air entry with no crackles, wheeze, rhonchi or dullness. CVS: S1 and S2 normal with no audible murmur, regular rhythm. ABDOMEN: No hepatosplenomegaly, normal bowel sounds, no guarding or rigidity. SPINE: No scoliosis or deformity SKIN: No rashes CENTRAL NERVOUS SYSTEM: No focal deficits, tone is normal in all 4 extremities. EXTREMITIES: There is no peripheral edema. No clubbing, no cyanosis. Peripheral pulses are intact. - Labs CBC & Chem 7: 06/11/24 04:25 06/12/24 17:03 Assessment and Plan Assessment: Acute alcohol withdrawal/delirium tremens Altered mentation secondary to above, recovered Agitation secondary to above, recovered Hallucinations secondary to above, recovered Chronic alcoholism Chronic thrombocytopenia secondary to alcoholism Depression Polysubstance abuse Remote history of DVT Plan: The patient was seen and evaluated Currently stable and on room air finish filer at the bedside Cleared for transfer back to inpatient psychiatric unit This patient was seen independently by the pulmonary nurse practitioner addressing pulmonary/critical care issues I have personally seen and examined the patient, performed the documentation and the assessment and plan as written. Number of minutes spent on the visit: 23 Dictation was produced using [employer] dictation software. Please excuse any grammatical, word or spelling errors
[2024-06-14 13:11] VITALS: BP 107/74; PULSE 80; TEMP 98.5
[2024-06-14] MEDS ORDERED: levETIRAcetam 500 MG TAB PO SCH (21:00)
--- NOTE | 2024-06-15 01:35 | DS ---
DISCHARGE SUMMARY DISCHARGE MEDICATIONS: 1. 25 q.i.d. 2. Nystatin suspension 5 mL q.i.d. 3. Suboxone 2 pills sublingual daily. 4. Habitrol patch daily. 5. Prozac 20 daily. 6. Catapres 0.1 b.i.d. 7. Seroquel 100 mg daily. 8. Pepcid 20 daily. 9. Albuterol inhaler p.r.n. Alcohol intoxication. Alcohol withdrawal. Psychotic disorder, depressed . The patient is going to rehab. for withdrawal. Back on his home medicines. He has had no seizures here, going through withdrawal. He is possibly discharged home. Possibly put him on Keppra just for prophylactic EEG as an outpatient. We will give him Keppra 500 b.i.d. on discharge. He will follow up as an outpatient. LORENZO / LETHA: [id number] /
--- NOTE | 2024-06-15 03:05 | PN ---
PROGRESS NOTE SUBJECTIVE: A 38-year-old white male. He has been cleared by Pulmonology. His withdrawals were stable. He is acting appropriately. We are going to send him back to the [facility] tomorrow. OBJECTIVE: CARDIOVASCULAR: S1, S2. LUNGS: Clear. GI: Soft. HEMATOLOGY: Negative Homans. MEDICATIONS: 1. Suboxone. 2. . 3. Librium. 4. Catapres. 5. Prozac. 6. Habitrol patch. 7. Mycostatin suspension. 8. Protonix. 9. Seroquel. 10.Sodium bicarb. Possible cirrhosis starting. Continue current treatment. Prognosis guarded. Please see further orders. MMODL / IJN: [id number] /
== END 2024-06-14 16:26 | disposition home or self-care (01) | DRG 775 ==
LOC: 5NMEDONC 16:40
PROVIDERS: ADMIT Family Medicine; ATTEND Family Medicine
DX: F10.229 Alcohol dependence with intoxication, unspecified (principal); F10.231 Alcohol dependence with withdrawal delirium; R45.851 Suicidal ideations; D69.59 Other secondary thrombocytopenia; F16.10 Hallucinogen abuse, uncomplicated; I10 Essential (primary) hypertension; F32.A Depression, unspecified; E66.9 Obesity, unspecified; F12.10 Cannabis abuse, uncomplicated; Z68.34 Body mass index [BMI] 34.0-34.9, adult; F17.290 Nicotine dependence, other tobacco product, uncomplicated; F41.9 Anxiety disorder, unspecified; Z91.199 Patient's noncompliance with other medical treatment and regimen due to unspecified reason; Z79.891 Long term (current) use of opiate analgesic; Z86.718 Personal history of other venous thrombosis and embolism; Z79.899 Other long term (current) drug therapy
CPT/HCPCS: 80053; 83735; 84132; 85025